=== PATIENT | female | born 1950 | race Hispanic/Latino ===

== ENCOUNTER 2016-05-16 15:33 | Inpatient (IN) | payer MEDICARE ==
[2016-05-16 15:57] VITALS: BMI 36.1
[2016-05-16] MEDS ORDERED: HYDROcodone/Acetaminophen 7.5/325 mg Tablet PO PRN (20:26)
[2016-05-16] MEDS: Gabapentin 300 MG CAP PO SCH (20:48)
[2016-05-16] MEDS: Atorvastatin Calcium 10 MG TAB PO SCH (20:49)
[2016-05-16] MEDS: Docusate 100 MG CAP PO SCH (20:49)
[2016-05-16] MEDS: Sucralfate 1 GM TAB PO SCH (20:49)
[2016-05-16] MEDS: HYDROcodone/Acetaminophen 7.5/325 mg Tablet PO PRN (20:49)
[2016-05-16] MEDS ORDERED: Hydroxychloroquine Sulfate 200 MG TAB PO SCH (21:00)
[2016-05-16] MEDS: Aggrenox 200-25mg CAP PO SCH (21:07)
[2016-05-16] MEDS: Hydroxychloroquine Sulfate 200 MG TAB PO SCH (21:36)
[2016-05-17] MEDS: HYDROcodone/Acetaminophen 7.5/325 mg Tablet PO PRN ×5 (03:51→20:51)
[2016-05-17 07:02] LABS: Anion Gap 14 mmol/L (10-20); BUN (Urea Nitrogen) 25 mg/dL (9.8-20.1); Calc. Creatinine Clearance 62 mL/min (70-130); Calcium 8.1 mg/dL (7.8-10.44); Carbon Dioxide 26 mmol/L (23-31); Chloride 102 mmol/L (98-107); Estimated GFR-MDRD 43; Glucose 115 mg/dL (80-115); Potassium 4.1 mmol/L (3.5-5.1); Sodium 138 mmol/L (136-145)
[2016-05-17 07:18] LABS: #Eosinphils 0.1 thou/uL (0.0-0.7); #Lymphocytes 0.9 thou/uL (1.20-3.40); #Monocytes 0.9 thou/uL (0.11-0.59); #Neutrophils 8.1 thou/uL (1.40-6.50); %Basophils 0.6 % (0.0-1.0); %Eosinophils 1.3 % (0.0-10.0); %Lymphocytes 9.3 % (21.0-51.0); %Neutrophils 79.7 % (42.0-75.0); Hemoglobin 9.5 g/dL (12.0-16.0); Mean Corpuscular HGB CONC 33.7 g/dL (32.0-36.0); Mean Corpuscular Hemoglobin 32.3 pg (27.0-31.0); Mean Corpuscular Volume 96.1 fL (81.0-99.0); Mean Platelet Volume 8.1 fL (7.4-10.4); Platelet Count 186 thou/uL (130-400); RBC Distribution Width 13.4 % (11.5-14.5); Red Blood Cell (RBC) Count 2.92 mill/uL (4.20-5.40); White Blood Cell (WBC) Count 10.2 thou/uL (4.8-10.8)
[2016-05-17 07:19] LABS: #Basophils 0.1 thou/uL (0.0-0.2)
[2016-05-17] MEDS: Sucralfate 1 GM TAB PO SCH ×2 (08:13→20:50)
[2016-05-17] MEDS: Hydroxychloroquine Sulfate 200 MG TAB PO SCH ×2 (08:55→20:50)
[2016-05-17] MEDS: Calcium Carbonate + Vit D 1 TAB PO SCH (08:55)
[2016-05-17] MEDS: Docusate 100 MG CAP PO SCH ×2 (08:56→20:51)
[2016-05-17] MEDS: Valsartan 80 MG TAB PO SCH (08:56)
[2016-05-17] MEDS: Bupropion 150 MG XL TAB PO SCH (08:56)
[2016-05-17] MEDS: Hydrochlorothiazide 25 MG TAB PO SCH (08:57)
[2016-05-17] MEDS: Gabapentin 300 MG CAP PO SCH ×2 (08:57→20:50)
[2016-05-17] MEDS ORDERED: HYDROCHLOROTHIAZIDE PO SCH (09:00)
[2016-05-17] MEDS ORDERED: VALSARTAN PO SCH (09:00)
[2016-05-17] MEDS ORDERED: [UNRECOGNIZED DRUG - OTHER] PO SCH (09:00)
[2016-05-17] MEDS ORDERED: AMLODIPINE PO SCH (09:00)
[2016-05-17] MEDS: Aggrenox 200-25mg CAP PO SCH ×2 (09:55→20:50)
[2016-05-17] MEDS: (Mirabegron [Myrbetriq] 50 MG) PO SCH (09:55)
--- NOTE | 2016-05-17 13:44 | RAD ---
PORTABLE CHEST 1 VIEW: DATE: 05/17/16. TIME: 10:22 a.m. HISTORY: Wheezing, atelectasis. FINDINGS: Comparison is made with the exam of 05/02/16. The heart size is normal. No focal areas of consolidation, pneumothorax, or pleural effusions are s een. IMPRESSION: No acute process. POS: OFF
[2016-05-17] MEDS: Atorvastatin Calcium 10 MG TAB PO SCH (20:49)
[2016-05-18] MEDS: HYDROcodone/Acetaminophen 7.5/325 mg Tablet PO PRN ×2 (04:15→08:48)
--- NOTE | 2016-05-18 05:19 | HP ---
DATE OF ADMISSION: 05/16/2016 HISTORY OF PRESENT ILLNESS: The patient is a very pleasant 65-year-old white female with a history of discoid lupus, insulin-dependent diabetes mellitus and hypertension, who has recently undergone a left total knee by Dr. Valdez Sadler and admitted to the SN[facility] unit for therapy. She has done well po stop with no complaints of chest pain, shortness of breath, fever, chills, nausea, vomiting. HOME MEDICATIONS: She has continued on her home medications of Myrbetriq 50 mg daily for urinary in continence, amlodipine 10 mg daily, as well as hydrochlorothiazide 25 mg daily for hypertension, gigi rvastatin 10 mg nightly for hyperlipidemia, gabapentin 300 twice daily for peripheral neuropathy, hy droxychloroquine sulfate 200 mg twice daily for discolored lupus Imdur 30 mg daily for recurrent sabrina st pain and angina and Diovan 320 mg daily for hypertension. She also takes Nexium 40 mg daily and sucralfate 1 g q.a.c. and at bedtime. ALLERGIES: She has no known allergies. SOCIAL HISTORY: She is a nonsmoker, nondrinker. REVIEW OF SYSTEMS: HEENT: She denies any headaches, dizziness, change in vision or hearing, hoarse ness or dysphagia. Pulmonary: She denies cough, sputum production, pneumonia, asthma, tuberculosis . Cardiovascular: Denies chest pain, orthopnea, paroxysmal nocturnal dyspnea or edema. Gastrointe stinal: Denies nausea, vomiting, diarrhea, constipation, abdominal pain. Genitourinary: She does have the above-mentioned incontinence controlled on Myrbertriq. Musculoskeletal: She has the above -mentioned recurrent pain in her left knee leading up to left total knee. 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 PHYSICAL EXAMINATION: GENERAL: The patient is an elderly female in no acute distress, oriented x3 and cooperativ e. VITAL SIGNS: Blood pressure of 121/61, temperature 99.1, pulse 91, respirations 22 and O2 saturatio ns 95%. LUNGS: Clear. CARDIAC: Regular rhythm. No gallops or murmurs. ABDOMEN: Soft, nontender with no masses or organomegaly. SKIN/EXTREMITIES: No edema, clubbing, cyanosis. There is left knee is bandaged with minimal erythe ma with significant tenderness and swelling. NEUROLOGICAL: Intact. LABORATORY AND X-RAY FINDINGS: Shows white count 10,200, hematocrit 28, and hemoglobin 9.5. Sodium 138, potassium 4.1, chloride 102, bicarbonate 26, BUN 25, creatinine 1.24. ASSESSMENT AND PLAN: A 65-year-old female with history of discoid lupus and hypertension, well controlled on medications, who has undergone a left total knee with no complications and admitt ed for physical therapy, should be continued on physical therapy, continue on DVT prophylaxis and st ress ulcer prophylaxis. Continue blood pressure control and monitor closely.
[2016-05-18] MEDS: Sucralfate 1 GM TAB PO SCH ×2 (07:49→20:22)
[2016-05-18] MEDS: Aggrenox 200-25mg CAP PO SCH ×2 (08:44→20:25)
[2016-05-18] MEDS: Docusate 100 MG CAP PO SCH ×2 (08:44→20:23)
[2016-05-18] MEDS: Calcium Carbonate + Vit D 1 TAB PO SCH (08:44)
[2016-05-18] MEDS: Hydrochlorothiazide 25 MG TAB PO SCH (08:44)
[2016-05-18] MEDS: Hydroxychloroquine Sulfate 200 MG TAB PO SCH ×2 (08:44→20:23)
[2016-05-18] MEDS: Bupropion 150 MG XL TAB PO SCH (08:45)
[2016-05-18] MEDS: Valsartan 80 MG TAB PO SCH (08:45)
[2016-05-18] MEDS: Gabapentin 300 MG CAP PO SCH ×2 (08:46→20:22)
[2016-05-18] MEDS: (Mirabegron [Myrbetriq] 50 MG) PO SCH (08:47)
[2016-05-18] MEDS: HYDROcodone/Acetaminophen 10/325 mg Tablet PO PRN ×3 (12:53→20:23)
--- NOTE | 2016-05-18 13:20 | PRG ---
DATE OF SERVICE: 05/18/2016 SUBJECTIVE: Patient feels well except for pain in her knee; constipation, is complaining about the CPM machine and significant pain with use of the machine, did cooperate; however, with therapy yeste rday. OBJECTIVE: Vital signs show blood pressure 119/58, pulse 93, afebrile, O2 sats 91%. Lungs are munira r. Cardiac examination shows regular rhythm. Abdomen is soft, nontender. Left knee shows minimal erythema and warmth. ASSESSMENT: Persistent pain, status post left total knee, on [place] 7.5 two every 4-6 hours, a new p roblem of constipation with narcotics. PLAN: Start MiraLax 17 grams twice, change [place] to 10/3.5 one to two every 4-6 hours as needed for moderate or severe pain. Restart CPM and stress to patient the need to continue this to pace in he r recovery.
[2016-05-18] MEDS: Atorvastatin Calcium 10 MG TAB PO SCH (20:22)
[2016-05-18] MEDS: Cyclobenzaprine 10 MG TAB PO PRN (20:23)
[2016-05-18] MEDS: Polyethylene Glycol 3350 17 GM Packet PO SCH (20:25)
[2016-05-19] MEDS: HYDROcodone/Acetaminophen 10/325 mg Tablet PO PRN ×4 (04:58→19:58)
[2016-05-19] MEDS: Sucralfate 1 GM TAB PO SCH ×2 (07:45→20:01)
[2016-05-19] MEDS: Calcium Carbonate + Vit D 1 TAB PO SCH (08:33)
[2016-05-19] MEDS: Hydrochlorothiazide 25 MG TAB PO SCH (08:33)
[2016-05-19] MEDS: Valsartan 80 MG TAB PO SCH (08:34)
[2016-05-19] MEDS: Docusate 100 MG CAP PO SCH ×2 (08:35→20:01)
[2016-05-19] MEDS: Bupropion 150 MG XL TAB PO SCH (08:35)
[2016-05-19] MEDS: Gabapentin 300 MG CAP PO SCH ×2 (08:35→20:01)
[2016-05-19] MEDS: Hydroxychloroquine Sulfate 200 MG TAB PO SCH ×2 (08:35→20:01)
[2016-05-19] MEDS: Nicotine 21 MG PATCH TD SCH (08:53)
[2016-05-19] MEDS: Aggrenox 200-25mg CAP PO SCH ×2 (08:53→20:01)
[2016-05-19] MEDS: (Mirabegron [Myrbetriq] 50 MG) PO SCH (08:53)
[2016-05-19] MEDS: Polyethylene Glycol 3350 17 GM Packet PO SCH ×2 (08:55→20:01)
[2016-05-19] MEDS: Cyclobenzaprine 10 MG TAB PO PRN (20:00)
[2016-05-19] MEDS: Atorvastatin Calcium 10 MG TAB PO SCH (20:01)
[2016-05-20] MEDS: HYDROcodone/Acetaminophen 10/325 mg Tablet PO PRN ×5 (01:29→20:18)
[2016-05-20] MEDS: Sucralfate 1 GM TAB PO SCH ×2 (07:42→20:19)
[2016-05-20] MEDS: Bupropion 150 MG XL TAB PO SCH (08:31)
[2016-05-20] MEDS: Aggrenox 200-25mg CAP PO SCH ×2 (08:31→20:20)
[2016-05-20] MEDS: Calcium Carbonate + Vit D 1 TAB PO SCH (08:31)
[2016-05-20] MEDS: Hydroxychloroquine Sulfate 200 MG TAB PO SCH ×2 (08:32→20:18)
[2016-05-20] MEDS: Gabapentin 300 MG CAP PO SCH ×2 (08:32→20:19)
[2016-05-20] MEDS: Docusate 100 MG CAP PO SCH ×2 (08:32→20:19)
[2016-05-20] MEDS: Hydrochlorothiazide 25 MG TAB PO SCH (08:32)
[2016-05-20] MEDS: Nicotine 21 MG PATCH TD SCH (08:33)
[2016-05-20] MEDS: (Mirabegron [Myrbetriq] 50 MG) PO SCH (08:33)
[2016-05-20] MEDS: Valsartan 80 MG TAB PO SCH (08:34)
[2016-05-20] MEDS: Polyethylene Glycol 3350 17 GM Packet PO SCH ×2 (08:34→20:19)
--- NOTE | 2016-05-20 09:51 | PRG ---
DATE OF SERVICE: 05/19/2016 SUBJECTIVE: The patient was seen in bed, getting ready to go the bathroom. She states that she sle pt better through the night, still having some problems with constipation and some difficulty with p ostnasal drainage. PHYSICAL EXAMINATION: VITAL SIGNS: Blood pressure 120/73, pulse 74, afebrile, respirations 20, O2 sats 95%. LUNGS: Clear. CARDIAC: Regular rhythm. EXTREMITIES: Right knee shows some swelling with no erythema or warmth. ASSESSMENT: Stable status post right total knee, stable discoid lupus, stable hypertension, persist ent constipation. Recurrent allergic rhinitis. PLAN: Loratadine 10 mg daily. Continue increased dose of hydrocodone 10/325 q.4h. Continue MiraLa x 17 grams twice daily.
--- NOTE | 2016-05-20 10:44 | PRG ---
DATE OF SERVICE: 05/20/2016 SUBJECTIVE: The patient is working with Physical Therapy with increased flexibility and decreased p ain in her left knee. She has good bowel movements with no further constipation. Had decreased con gestion on loratadine. OBJECTIVE: VITAL SIGNS: Blood pressure is 136/62, pulse is 86, temperature 98.9, O2 sats 91%, respirations 18. LUNGS: Clear. CARDIAC: Showed regular rhythm. EXTREMITIES: Left knee shows stable swelling with no erythema or warmth. ASSESSMENT: 1. Resolving left total knee. 2. Stable hypertension. 3. Resolved constipation. 4. Improving allergic rhinitis. PLAN: Continue PT, OT. Continue MiraLax routinely and hydrocodone as needed for pain relief.
[2016-05-20] MEDS: Cyclobenzaprine 10 MG TAB PO PRN (20:18)
[2016-05-20] MEDS: Atorvastatin Calcium 10 MG TAB PO SCH (20:19)
[2016-05-21] MEDS: HYDROcodone/Acetaminophen 10/325 mg Tablet PO PRN ×5 (03:03→20:31)
[2016-05-21] MEDS: Sucralfate 1 GM TAB PO SCH ×2 (07:16→20:26)
[2016-05-21] MEDS: Gabapentin 300 MG CAP PO SCH ×2 (08:19→20:27)
[2016-05-21] MEDS: Calcium Carbonate + Vit D 1 TAB PO SCH (08:19)
[2016-05-21] MEDS: Aggrenox 200-25mg CAP PO SCH ×2 (08:19→20:27)
[2016-05-21] MEDS: Docusate 100 MG CAP PO SCH ×2 (08:19→20:26)
[2016-05-21] MEDS: Bupropion 150 MG XL TAB PO SCH (08:19)
[2016-05-21] MEDS: Hydrochlorothiazide 25 MG TAB PO SCH (08:20)
[2016-05-21] MEDS: (Mirabegron [Myrbetriq] 50 MG) PO SCH (08:20)
[2016-05-21] MEDS: Nicotine 21 MG PATCH TD SCH (08:20)
[2016-05-21] MEDS: Hydroxychloroquine Sulfate 200 MG TAB PO SCH ×2 (08:20→20:27)
[2016-05-21] MEDS: Polyethylene Glycol 3350 17 GM Packet PO SCH ×2 (08:21→20:27)
[2016-05-21] MEDS: Valsartan 80 MG TAB PO SCH (08:21)
[2016-05-21] MEDS: Atorvastatin Calcium 10 MG TAB PO SCH (20:27)
[2016-05-21] MEDS: Cyclobenzaprine 10 MG TAB PO PRN (20:27)
[2016-05-22] MEDS: HYDROcodone/Acetaminophen 10/325 mg Tablet PO PRN ×3 (04:26→13:24)
[2016-05-22 07:10] VITALS: BP 120/68; TEMP 98.5
[2016-05-22] MEDS: Sucralfate 1 GM TAB PO SCH (07:30)
[2016-05-22] MEDS: (Mirabegron [Myrbetriq] 50 MG) PO SCH (09:00)
[2016-05-22] MEDS: Calcium Carbonate + Vit D 1 TAB PO SCH (09:30)
[2016-05-22] MEDS: Docusate 100 MG CAP PO SCH (09:30)
[2016-05-22] MEDS: Hydrochlorothiazide 25 MG TAB PO SCH (09:30)
[2016-05-22] MEDS: Gabapentin 300 MG CAP PO SCH (09:30)
[2016-05-22] MEDS: Valsartan 80 MG TAB PO SCH (09:30)
[2016-05-22] MEDS: Nicotine 21 MG PATCH TD SCH (09:30)
[2016-05-22] MEDS: Aggrenox 200-25mg CAP PO SCH (09:30)
[2016-05-22] MEDS: Polyethylene Glycol 3350 17 GM Packet PO SCH (09:30)
[2016-05-22] MEDS: Hydroxychloroquine Sulfate 200 MG TAB PO SCH (09:30)
[2016-05-22] MEDS: Bupropion 150 MG XL TAB PO SCH (09:30)
--- NOTE | 2016-05-23 12:00 | DIS ---
DATE OF ADMISSION: 05/16/2016 DATE OF DISCHARGE: 05/22/2016 FINAL DIAGNOSES: 1. Left total knee replacement. 2. Hypertension. 3. Discoid lupus. 4. Gastroesophageal reflux. 5. Nicotine abuse. HOSPITAL COURSE: The patient is a very pleasant 65-year-old female with history of discoid lupus, insulin-dependent diabetes mellitus, hypertension, who underwent a left total knee by Dr. Cathie Sadler with no complications, and was transferred to the SNF Unit on May 16, 2016, and started her on physical therapy, occupational therapy, and did very well with only problem with some pain, which was controlled with hydrocodone. She was continued on DVT, stress ulcer prophylaxis and blood pressure control. She was also continued on diabetic control. Glucose 115, BUN 25, creatinine 1.2 4, hematocrit 25, hemoglobin 9.5. Lungs were clear. Cardiac examination showed regular rhythm. Bl ood pressure remained stable at 136-125, O2 sat remained 95%. She was ambulating in the [place] with p hysical therapy and stated that she was ready to go home and do outpatient therapy, and therefore wa s discharged home on prehospitalization medication of Lipitor 10 nightly, Aggrenox 1 tab twice daily , bupropion 150 mg daily, Flexeril 10 mg nightly, Nexium 40 mg daily, docusate 100 mg twice daily as needed, gabapentin 300 twice daily, Plaquenil 200 mg twice daily, Isordil 30 mg daily, Myrbetriq 50 mg nightly, nicotine patch 21 mg daily, sertraline 100 mg daily, sucralfate 1 gram daily, and amlod ipine 10 mg daily, valsartan 320 mg daily and hydrochlorothiazide 25 mg daily in a combination pill, Exforge HCT. She will be follow up with per primary care, Dr. Abida Valencia. Continue outpatient y sical therapy, occupational therapy. She will also be followed up by her orthopedic physician, Dr. Sadler.
== END 2016-05-22 14:30 | disposition home or self-care (01) | DRG 561 ==
LOC: NAV ACUTE 15:33
PROVIDERS: ADMIT Internal Medicine; ATTEND Internal Medicine
DX: Z47.1 Aftercare following joint replacement surgery (principal); I10 Essential (primary) hypertension; Z96.651 Presence of right artificial knee joint; L93.0 Discoid lupus erythematosus; K21.9 Gastro-esophageal reflux disease without esophagitis; F17.210 Nicotine dependence, cigarettes, uncomplicated; G89.18 Other acute postprocedural pain; K59.00 Constipation, unspecified; T40.605A Adverse effect of unspecified narcotics, initial encounter
CPT/HCPCS: 71010; 80048; 85025; 87070; 87205

== ENCOUNTER 2016-06-26 10:10 | Outpatient (CLI) | payer MEDICARE | END 2016-06-26 10:11 | disposition home or self-care (01) | LOC: NAV LAB 10:10 | PROVIDERS: ATTEND Family Medicine | DX: R82.90 Unspecified abnormal findings in urine (principal) | CPT/HCPCS: 87086 ==

== ENCOUNTER 2017-05-20 16:47 | Inpatient (IN) | payer MEDICARE, MEDICAID ==
[2017-05-20] MEDS ORDERED: Prevnar 13-Val Conj/PF 0.5 ML SYRINGE IM ONE (17:15)
[2017-05-20] MEDS: Nicotine 21 MG PATCH TOP SCH (20:22)
[2017-05-20] MEDS: TROSPIUM 20 MG TABLET PO SCH (20:23)
[2017-05-20] MEDS: Docusate 100 MG CAP PO SCH (20:23)
[2017-05-20] MEDS: Sucralfate 1 GM TAB PO SCH (20:23)
[2017-05-20] MEDS: Gabapentin 300 MG CAP PO SCH (20:23)
[2017-05-20] MEDS: Atorvastatin Calcium 10 MG TAB PO SCH (20:24)
[2017-05-20] MEDS: Triamcinolone 0.025 % Cream 15GM TUBE TOP SCH (20:32)
[2017-05-20] MEDS: Acetaminophen 325 MG TAB PO PRN (22:38)
[2017-05-20] MEDS: Cyclobenzaprine 10 MG TAB PO PRN (22:39)
[2017-05-21 05:29] LABS: #Basophils 0.1 thou/uL (0.0-0.2); #Eosinphils 0.7 thou/uL (0.0-0.7); #Lymphocytes 1.3 thou/uL (1.20-3.40); #Monocytes 0.7 thou/uL (0.11-0.59); #Neutrophils 3.8 thou/uL (1.40-6.50); %Eosinophils 10.6 % (0.0-10.0); %Lymphocytes 20.1 % (21.0-51.0); %Monocytes 10.8 % (0.0-10.0); %Neutrophils 57.5 % (42.0-75.0); Hemoglobin 11.1 g/dL (12.0-16.0); Mean Corpuscular HGB CONC 32.9 g/dL (32.0-36.0); Mean Corpuscular Hemoglobin 30.5 pg (27.0-31.0); Mean Corpuscular Volume 92.6 fl (81.0-99.0); Mean Platelet Volume 9.4 fL (7.4-10.4); Platelet Count 218 thou/uL (130-400); RBC Distribution Width 13.6 % (11.5-14.5); Red Blood Cell (RBC) Count 3.63 mill/uL (4.20-5.40); White Blood Cell (WBC) Count 6.6 thou/uL (4.8-10.8)
[2017-05-21 05:41] LABS: Anion Gap 13 mmol/L (10-20); BUN (Urea Nitrogen) 23 mg/dL (9.8-20.1); Calc. Creatinine Clearance 75 mL/min (70-130); Calcium 9.6 mg/dL (7.8-10.44); Carbon Dioxide 27 mmol/L (23-31); Chloride 107 mmol/L (98-107); Estimated GFR-MDRD 61; Glucose 94 mg/dL (80-115); Potassium 3.9 mmol/L (3.5-5.1); Sodium 143 mmol/L (136-145)
[2017-05-21] MEDS ORDERED: [UNRECOGNIZED DRUG - OTHER] PO SCH (09:00)
[2017-05-21] MEDS: Amlodipine 10 MG TAB PO SCH (09:51)
[2017-05-21] MEDS: Hydroxychloroquine Sulfate 200 MG TAB PO SCH (09:51)
[2017-05-21] MEDS: Calcium Carbonate + Vit D 1 TAB PO SCH (09:55)
[2017-05-21] MEDS: Sucralfate 1 GM TAB PO SCH ×4 (09:55→20:49)
[2017-05-21] MEDS: Bupropion 150 MG XL TAB PO SCH (09:55)
[2017-05-21] MEDS: Acetaminophen 325 MG TAB PO PRN ×2 (09:55→15:58)
[2017-05-21] MEDS: TROSPIUM 20 MG TABLET PO SCH ×2 (09:56→20:49)
[2017-05-21] MEDS: Valsartan 80 MG TAB PO SCH (09:56)
[2017-05-21] MEDS: Docusate 100 MG CAP PO SCH ×2 (09:56→20:48)
[2017-05-21] MEDS: Isosorbide Dinitrate 20 MG TAB PO SCH (09:57)
[2017-05-21] MEDS: Hydrochlorothiazide 25 MG TAB PO SCH (09:57)
[2017-05-21] MEDS: Gabapentin 300 MG CAP PO SCH ×2 (09:57→20:48)
[2017-05-21] MEDS: [UNRECOGNIZED DRUG - OTHER] PO SCH (10:12)
[2017-05-21] MEDS: OMEGA PO SCH (10:12)
[2017-05-21] MEDS: BIOTIN 5 MG PO SCH (10:13)
[2017-05-21] MEDS: Triamcinolone 0.025 % Cream 15GM TUBE TOP SCH ×2 (10:20→20:49)
[2017-05-21 11:17] LABS: Hemoglobin A1c 5.1 % (4.0-6.0)
--- NOTE | 2017-05-21 14:21 | HP ---
DATE OF ADMISSION: 05/20/2017 CHIEF COMPLAINT: Intracranial hemorrhage. BRIEF HISTORY: This is a very pleasant 66-year-old female who is well known to me apparentl y presented to the emergency room. She presented to the [facility] with severe h eadache, mandibular pain and right-sided weakness. She had a CT scan done which showed right and lef t supratentorial hemorrhage. She was admitted to the hospital. She was deemed to be inappropriate t o be managed conservatively. She was on Aggrenox in the past and that was held. She slowly improved , but felt to be a good detention candidate for therapy and so has been transferred here. Curr ently, her main complaint is right arm pain. Her daughter is in the room. She denies any headache. She denies any visual symptoms. She is able to recognize me. Her speech is clear. Denies any diff iculty with swallowing. PAST MEDICAL HISTORY: 1. History of lupus, I think it was more of discoid lupus. 2. Hypertension. 3. Dyslipidemia. 4. Rheumatoid arthritis. 5. Peptic ulcer disease. 6. Depression. 7. Overactive bladder. 8. She had CVA in 2004. PAST SURGICAL HISTORY: 1. Back surgery in 2004. 2. Bilateral cataract extraction. 3. Multiple dental surgeries. 4. Hysterectomy. 5. Bladder surgery. 6. Left total knee replacement. FAMILY HISTORY: Positive for hypertension in her father and diabetes in her mother. PSYCHOSOCIAL HISTORY: Current smoker. Denies any alcohol or IV drug abuse. ALLERGIES: No known drug allergies. MEDICATIONS: She has been transferred here on the following medications: 1. Tylenol 650 mg q.6 p.r.n. 2. Amlodipine 10 mg daily. 3. Lipitor 10 mg daily. 4. Wellbutrin 300 mg daily. 5. Flexeril 10 mg at bedtime p.r.n. 6. Gabapentin 300 mg b.i.d. 7. HCTZ 25 mg daily. 8. Hydroxychloroquine, which is Plaquenil 200 mg daily. 9. Isosorbide 40 mg daily. 10. Myrbetriq 50 mg daily. 11. Protonix 40 mg daily. 12. Sertraline 100 mg daily. 13. Carafate 1 gram q.i.d. 14. Valsartan 320 mg daily. She is also on trospium and I am not sure why in addition to the Myrbet riq. REVIEW OF SYSTEMS: CARDIOVASCULAR SYSTEM: Denies any chest pain, shortness of breath, palpitations, paroxysmal nocturnal dyspnea, orthopnea, pedal edema. RESPIRATORY SYSTEM: Denies any chronic cough , expiration or pleuritic type chest pain. GASTROINTESTINAL SYSTEM: Denies any nausea, vomiting, co nstipation, hematemesis, melena, or hematochezia. GENITOURINARY SYSTEM: Denies any frequency, urgen cy, dysuria or hematuria. She does have symptoms of bladder control by medication. CENTRAL NERVOUS SYSTEM: Right-sided weakness, most likely related to her intracranial hemorrhage. Denies any diffic ult speech, vision, or swallowing. PHYSICAL EXAMINATION: GENERAL: Very pleasant 66-year-old female resting comfortably in no acute distress. She re sponds appropriately to questions. Her daughter is in the room. VITAL SIGNS: She is afebrile, heart rate is 88, respirations 18, oxygen saturation 96% on room air, blood pressure 145/70. HEENT: Normocephalic, atraumatic. Pupils are equally reactive to light and accommodation. NECK: No JVD, thyromegaly, cervical adenopathy, throat exudates or carotid bruits. CARDIOVASCULAR SY STEM: S1, S2, rate and rhythm regular. RESPIRATORY SYSTEM: Normal vesicular breath sounds heard in all lung tate. ABDOMEN: Soft, nontender, bowel sounds heard in all quadrants. EXTREMITIES: Without cyanosis or clubbing. CENTRAL NERVOUS SYSTEM: With 3-4/5 weakness in strength in the right upper and lower extremities. LABORATORY VALUES: White count of 6.6, hemoglobin and hematocrit is 11.1 and 33.6. Sodium 143, pota ssium 3.9, BUN and creatinine is 23 and 0.92, calcium is 9.6, glycohemoglobin is 5.1. IMPRESSION: 1. Intracranial hemorrhage with residual right-sided weakness. 2. Hypertension. 3. Dyslipidemia. 4. History of ischemic/embolic cerebrovascular in 2004 and was on Aggrenox. 5. Gastroesophageal reflux disease. 6. History of lupus and rheumatoid arthritis. 7. Chronic pain. 8. Depression. PLAN: 1. Continue current medications. 2. Monitor neuro status. 3. DVT and stress ulcer prophylaxis. 4. Decubitus precautions. 5. Heart healthy diet. 6. Physical therapy and occupational therapy. 7. Nutritional support. 8. Routine laboratory values. 9. Outpatient followup with Neurosurgery and Neurology. 10. Monitor her medications for her overactive bladder. 11. We will see if she was getting hydrocodone there and if it was cleared by Neurosurgery then we w ill get her back on her hydrocodone. Estimated length of stay 7-14 days. Discussed with the patient and daughter in detail. All question s answered.
[2017-05-21] MEDS: Nicotine 21 MG PATCH TOP SCH (17:51)
[2017-05-21] MEDS: Atorvastatin Calcium 10 MG TAB PO SCH (20:48)
[2017-05-21] MEDS: Cyclobenzaprine 10 MG TAB PO PRN (20:49)
[2017-05-22] MEDS: Acetaminophen 325 MG TAB PO PRN (09:18)
[2017-05-22] MEDS: Sucralfate 1 GM TAB PO SCH ×4 (09:18→21:01)
[2017-05-22] MEDS: Valsartan 80 MG TAB PO SCH (09:18)
[2017-05-22] MEDS: Docusate 100 MG CAP PO SCH ×2 (09:19→21:01)
[2017-05-22] MEDS: Hydroxychloroquine Sulfate 200 MG TAB PO SCH (09:19)
[2017-05-22] MEDS: Calcium Carbonate + Vit D 1 TAB PO SCH (09:20)
[2017-05-22] MEDS: Bupropion 150 MG XL TAB PO SCH (09:20)
[2017-05-22] MEDS: Amlodipine 10 MG TAB PO SCH (09:20)
[2017-05-22] MEDS: Isosorbide Dinitrate 20 MG TAB PO SCH (09:20)
[2017-05-22] MEDS: Hydrochlorothiazide 25 MG TAB PO SCH (09:20)
[2017-05-22] MEDS: TROSPIUM 20 MG TABLET PO SCH ×2 (09:20→21:01)
[2017-05-22] MEDS: Gabapentin 300 MG CAP PO SCH ×2 (09:20→21:01)
[2017-05-22] MEDS: OMEGA PO SCH (09:21)
[2017-05-22] MEDS: [UNRECOGNIZED DRUG - OTHER] PO SCH (09:21)
[2017-05-22] MEDS: BIOTIN 5 MG PO SCH (09:21)
[2017-05-22] MEDS: Triamcinolone 0.025 % Cream 15GM TUBE TOP SCH ×2 (11:55→21:01)
[2017-05-22] MEDS: HYDROcodone/Acetaminophen 5/325 mg Tablet PO PRN (13:13)
--- NOTE | 2017-05-22 13:33 | PRG ---
DATE OF SERVICE: 05/22/2017 SUBJECTIVE: Ms. Nation is doing well. She apparently did well with therapy. She continues to compla in of pain. Advised that I am going to get her back on just 5/325 of hydrocodone q.6h. p.r.n. just t o see how she does. She wondered if she can go home for the weekend. I advised her that the more sh e can do is on for a couple of hours, but even that at this point I would not recommend since she is just post-intracerebral hemorrhage and we want to continue to monitor her closely. OBJECTIVE: VITAL SIGNS: She is afebrile, heart rate 70, respirations 20, oxygen saturation 96% on room air, blo od pressure 120/66. CARDIOVASCULAR SYSTEM: S1, S2 plus. RESPIRATORY SYSTEM: Normal vesicular breath sounds. ABDOMEN: Soft, nontender, bowel sounds heard in all quadrants. EXTREMITIES: Without cyanosis or clubbing. Peripheral pulses are palpable. CENTRAL NERVOUS SYSTEM: Improving right-sided weakness. IMPRESSION: 1. Intracerebral hemorrhage with right-sided weakness. 2. Hypertension, stable. 3. Dyslipidemia. 4. Rheumatoid arthritis. 5. History of peptic ulcer disease. 6. Depression. 7. Overactive bladder. 8. History of ischemic cerebrovascular accident. PLAN: 1. Resume hydrocodone 5/325 q.6 h. p.r.n. 2. Continue other medications. 3. Heart healthy diet. 4. DVT and stress ulcer prophylaxis with PlexiPulses. 5. Physical therapy and occupational therapy. 6. Home medications. 7. Routine laboratory values. 8. Discussed with patient in detail. All questions answered.
[2017-05-22] MEDS: Nicotine 21 MG PATCH TOP SCH (18:08)
[2017-05-22] MEDS: Atorvastatin Calcium 10 MG TAB PO SCH (21:01)
[2017-05-22] MEDS: Cyclobenzaprine 10 MG TAB PO PRN (21:02)
[2017-05-23] MEDS: Calcium Carbonate + Vit D 1 TAB PO SCH (08:01)
[2017-05-23] MEDS: TROSPIUM 20 MG TABLET PO SCH ×2 (08:02→20:35)
[2017-05-23] MEDS: Docusate 100 MG CAP PO SCH ×2 (08:02→20:35)
[2017-05-23] MEDS: Bupropion 150 MG XL TAB PO SCH (08:02)
[2017-05-23] MEDS: Sucralfate 1 GM TAB PO SCH ×4 (08:08→20:35)
[2017-05-23] MEDS: Hydroxychloroquine Sulfate 200 MG TAB PO SCH (08:08)
[2017-05-23] MEDS: Amlodipine 10 MG TAB PO SCH (08:08)
[2017-05-23] MEDS: Gabapentin 300 MG CAP PO SCH ×2 (08:08→20:35)
[2017-05-23] MEDS: Valsartan 80 MG TAB PO SCH (08:08)
[2017-05-23] MEDS: Isosorbide Dinitrate 20 MG TAB PO SCH (08:08)
[2017-05-23] MEDS: OMEGA PO SCH (08:09)
[2017-05-23] MEDS: [UNRECOGNIZED DRUG - OTHER] PO SCH (08:09)
[2017-05-23] MEDS: BIOTIN 5 MG PO SCH (08:09)
[2017-05-23] MEDS: Hydrochlorothiazide 25 MG TAB PO SCH (08:09)
[2017-05-23] MEDS: Triamcinolone 0.025 % Cream 15GM TUBE TOP SCH ×2 (09:00→20:35)
[2017-05-23] MEDS: Acetaminophen 325 MG TAB PO PRN (10:06)
[2017-05-23] MEDS: Nicotine 21 MG PATCH TOP SCH (20:34)
[2017-05-23] MEDS: Cyclobenzaprine 10 MG TAB PO PRN (20:35)
[2017-05-23] MEDS: Atorvastatin Calcium 10 MG TAB PO SCH (20:35)
--- NOTE | 2017-05-24 07:36 | PRG ---
DATE OF SERVICE: 05/24/2017 DATE OF ADMISSION: 05/20/2017 HISTORY OF PRESENT ILLNESS: Ms. Nation is a 66-year-old female who presented to emergency ro om at [facility] with severe headache. She was found to have a right and left hendrix pratentorial hemorrhage. She was admitted to the hospital and managed conservatively. Her Aggrenox was stopped and she slowly improved and was felt unsafe to be at home. Therefore, she was transferre d to [facility] for physical therapy and occupational therapy to manage her weakness and pain. The patient states she feels a little bit better and feels a little bit stronger and seems to be doin g well with her therapy. PHYSICAL EXAMINATION: VITAL SIGNS: Reveal blood pressure last night was 107/76, pulse 83, respirations 18, O2 sat was 93% on room air, T-max is 98.5. Weight is 174 pounds. GENERAL: This is a well-developed, well-nourished, pleasant white female in no apparent distress at this time. HEENT: Reveals normocephalic, nontraumatic cranium. Pupils are equally round and reactive. Extraoc ular movements are intact. Nose and throat are slightly dry, but clear. NECK: Supple, without mass, nodes or bruits. CHEST: Clear to auscultation. No rales, no rhonchi, no wheezes and no cough is heard. HEART: Reveals a regular rate and rhythm without murmurs, gallops or rubs. ABDOMEN: Soft and nontender without organomegaly. Normal bowel sounds are noted in all 4 quadrants. No rebound or guarding is noted. GENITOURINARY: Deferred. EXTREMITIES: Reveal no clubbing, cyanosis or edema. NEUROLOGIC: Patient is oriented to person, place, and time. IMPRESSION: 1. Intracerebral hemorrhage with right-sided weakness. 2. Hypertension. 3. Rheumatoid arthritis. 4. Hyperlipidemia. 5. History of peptic ulcer disease. 6. Overactive bladder. 7. Depression. 8. History of cerebrovascular accident in the past. PLAN: 1. Continue present medications. 2. Continue hydrocodone 5/325 q.6 p.r.n. 3. Stress ulcer prophylaxis. 4. DVT prophylaxis. 5. Physical therapy and occupational therapy. 6. Continue present medications. 7. Routine labs as necessary.
[2017-05-24] MEDS: Triamcinolone 0.025 % Cream 15GM TUBE TOP SCH ×3 (08:30→20:38)
[2017-05-24] MEDS: Amlodipine 10 MG TAB PO SCH (08:55)
[2017-05-24] MEDS: Gabapentin 300 MG CAP PO SCH ×2 (09:00→20:36)
[2017-05-24] MEDS: Bupropion 150 MG XL TAB PO SCH (09:00)
[2017-05-24] MEDS: Docusate 100 MG CAP PO SCH ×2 (09:00→20:36)
[2017-05-24] MEDS: Calcium Carbonate + Vit D 1 TAB PO SCH (09:00)
[2017-05-24] MEDS: Hydrochlorothiazide 25 MG TAB PO SCH (09:01)
[2017-05-24] MEDS: Isosorbide Dinitrate 20 MG TAB PO SCH (09:01)
[2017-05-24] MEDS: Hydroxychloroquine Sulfate 200 MG TAB PO SCH (09:01)
[2017-05-24] MEDS: [UNRECOGNIZED DRUG - OTHER] PO SCH (09:02)
[2017-05-24] MEDS: OMEGA PO SCH (09:02)
[2017-05-24] MEDS: BIOTIN 5 MG PO SCH (09:02)
[2017-05-24] MEDS: Sucralfate 1 GM TAB PO SCH ×4 (09:03→20:35)
[2017-05-24] MEDS: TROSPIUM 20 MG TABLET PO SCH ×2 (09:03→20:36)
[2017-05-24] MEDS: Valsartan 80 MG TAB PO SCH (09:03)
[2017-05-24] MEDS: HYDROcodone/Acetaminophen 5/325 mg Tablet PO PRN ×2 (10:54→20:38)
[2017-05-24] MEDS: Nicotine 21 MG PATCH TOP SCH (18:48)
[2017-05-24] MEDS: Atorvastatin Calcium 10 MG TAB PO SCH (20:36)
--- NOTE | 2017-05-25 07:51 | PRG ---
DATE OF SERVICE: 05/25/2017 HISTORY OF PRESENT ILLNESS: Ms. Nation is a very pleasant 66-year-old female who presented h erself to the emergency room at [facility] with severe headache. She was found t o have right and left supratentorial hemorrhage. She was evaluated at the hospital, seen by [facility] and managed conservatively. Her Aggrenox was stopped. She was unsafe to send home, so therefor e she was transferred to [facility] for physical therapy, occupational therapy, and n eurological monitoring. SUBJECTIVE: The patient states she continues to feel better. She is wondering when she can go home. She will need a little bit more strengthening and we will have to follow her a little longer for be tter resolutions of her hemorrhage. She has no other questions today. PHYSICAL EXAMINATION: VITAL SIGNS: This morning reveal blood pressure 119/56, pulse 75-76, respirations 18-20, O2 sat 97%- 98% on room air and T-max is 99.1. GENERAL: This is a well-developed, well-nourished, somewhat obese female in no apparent dis tress at this time. HEENT: Reveals normocephalic, nontraumatic cranium. Pupils equal, round, and reactive. Extraocular movements are intact. Nose and throat are moist and clear. NECK: Supple, without mass, nodes or bruits. CHEST: Clear to auscultation. No rales, rhonchi, wheezes or cough is noted. HEART: Reveals a regular rate and rhythm without murmurs, gallops or rubs. ABDOMEN: Soft, nontender, without organomegaly. Normal bowel sounds are noted. No rebound or guard ing is noted. GENITOURINARY: Deferred. EXTREMITIES: Reveal no clubbing, cyanosis or edema. NEUROLOGIC: The patient is oriented to person, place, and time. IMPRESSION: 1. Intracerebral hemorrhage with right-sided weakness. 2. Hypertension. 3. Hyperlipidemia. 4. Rheumatoid arthritis. 5. Overactive bladder. 6. History of peptic ulcer disease. 7. Depression. 8. History of cerebrovascular accident in the past. PLAN: 1. Continue present medication. 2. Continue hydrocodone 5/325 only p.r.n. 3. Stress ulcer prophylaxis. 4. DVT prophylaxis. 5. Decubitus precautions. 6. Continue present medications. 7. Routine labs p.r.n. 8. Physical therapy and occupational therapy. 9. Dr. Whaley will be back medical radiation therapist tonight at 9.
[2017-05-25] MEDS: Bupropion 150 MG XL TAB PO SCH (09:00)
[2017-05-25] MEDS: Amlodipine 10 MG TAB PO SCH (09:00)
[2017-05-25] MEDS: Docusate 100 MG CAP PO SCH ×2 (09:01→20:38)
[2017-05-25] MEDS: Calcium Carbonate + Vit D 1 TAB PO SCH (09:01)
[2017-05-25] MEDS: Hydroxychloroquine Sulfate 200 MG TAB PO SCH (09:02)
[2017-05-25] MEDS: Gabapentin 300 MG CAP PO SCH ×2 (09:02→20:38)
[2017-05-25] MEDS: Hydrochlorothiazide 25 MG TAB PO SCH (09:02)
[2017-05-25] MEDS: Isosorbide Dinitrate 20 MG TAB PO SCH (09:02)
[2017-05-25] MEDS: [UNRECOGNIZED DRUG - OTHER] PO SCH (09:03)
[2017-05-25] MEDS: BIOTIN 5 MG PO SCH (09:03)
[2017-05-25] MEDS: OMEGA PO SCH (09:03)
[2017-05-25] MEDS: Sucralfate 1 GM TAB PO SCH ×4 (09:04→20:38)
[2017-05-25] MEDS: Triamcinolone 0.025 % Cream 15GM TUBE TOP SCH ×2 (09:05→20:39)
[2017-05-25] MEDS: TROSPIUM 20 MG TABLET PO SCH ×2 (09:06→20:38)
[2017-05-25] MEDS: Valsartan 80 MG TAB PO SCH (09:06)
[2017-05-25] MEDS: HYDROcodone/Acetaminophen 5/325 mg Tablet PO PRN ×2 (09:07→20:39)
[2017-05-25] MEDS: Nicotine 21 MG PATCH TOP SCH (17:57)
[2017-05-25] MEDS: Atorvastatin Calcium 10 MG TAB PO SCH (20:38)
[2017-05-26] MEDS: Calcium Carbonate + Vit D 1 TAB PO SCH (09:02)
[2017-05-26] MEDS: Sucralfate 1 GM TAB PO SCH ×4 (09:02→20:32)
[2017-05-26] MEDS: Gabapentin 300 MG CAP PO SCH ×2 (09:03→20:31)
[2017-05-26] MEDS: Bupropion 150 MG XL TAB PO SCH (09:03)
[2017-05-26] MEDS: Hydroxychloroquine Sulfate 200 MG TAB PO SCH (09:03)
[2017-05-26] MEDS: TROSPIUM 20 MG TABLET PO SCH ×2 (09:03→20:32)
[2017-05-26] MEDS: Amlodipine 10 MG TAB PO SCH (09:04)
[2017-05-26] MEDS: Hydrochlorothiazide 25 MG TAB PO SCH (09:04)
[2017-05-26] MEDS: Valsartan 80 MG TAB PO SCH (09:04)
[2017-05-26] MEDS: Docusate 100 MG CAP PO SCH ×2 (09:04→20:31)
[2017-05-26] MEDS: Isosorbide Dinitrate 20 MG TAB PO SCH (09:05)
[2017-05-26] MEDS: [UNRECOGNIZED DRUG - OTHER] PO SCH (09:06)
[2017-05-26] MEDS: OMEGA PO SCH (09:06)
[2017-05-26] MEDS: BIOTIN 5 MG PO SCH (09:06)
[2017-05-26] MEDS: Triamcinolone 0.025 % Cream 15GM TUBE TOP SCH ×2 (09:08→20:32)
--- NOTE | 2017-05-26 13:21 | PRG ---
DATE OF SERVICE: 05/26/2017 SUBJECTIVE: Ms. Nation is doing well. Denies any complaints, resting comfortably. No family at beds jessica, discussed with therapy and they stated that she was more weak today and needed more assistance, especially in her right lower extremity. The patient did not complain to me of any headache. They d id notice her blood pressure to be low. OBJECTIVE: VITAL SIGNS: She is afebrile, heart rate 73, respirations 20, oxygen saturation 95%, blood pressure was 108/65 but with activity, it went down to 96/58. CARDIOVASCULAR: S1, S2 plus. RESPIRATORY: Normal vesicular breath sounds. ABDOMEN: Soft, nontender, bowel sounds heard in all quadrants. EXTREMITIES: Without cyanosis or clubbing. IMPRESSION: 1. Intracranial hemorrhage. 2. History of ischemic cerebrovascular accident. 3. Hypertension having episodes of hypotension. 4. Dyslipidemia. 5. Rheumatoid arthritis. 6. History of lupus. 7. Overactive bladder. PLAN: 1. Adjust blood pressure medications. 2. Nutritional support. 3. Physical therapy. 4. If she continues to have persistent weakness or any worsening, we will repeat another CT brain. 5. Discussed with the patient in therapy in detail. All questions answered. 6. Recheck laboratories in the morning.
[2017-05-26] MEDS: HYDROcodone/Acetaminophen 5/325 mg Tablet PO PRN (13:39)
[2017-05-26] MEDS: Nicotine 21 MG PATCH TOP SCH (17:56)
[2017-05-26] MEDS: Atorvastatin Calcium 10 MG TAB PO SCH (20:31)
[2017-05-26] MEDS: Cyclobenzaprine 10 MG TAB PO PRN (20:32)
[2017-05-27] MEDS: Hydrochlorothiazide 25 MG TAB PO SCH (08:04)
[2017-05-27] MEDS: Bupropion 150 MG XL TAB PO SCH (08:04)
[2017-05-27] MEDS: Isosorbide Dinitrate 20 MG TAB PO SCH (08:05)
[2017-05-27] MEDS: Docusate 100 MG CAP PO SCH ×2 (08:05→21:01)
[2017-05-27] MEDS: Hydroxychloroquine Sulfate 200 MG TAB PO SCH (08:05)
[2017-05-27] MEDS: Gabapentin 300 MG CAP PO SCH ×2 (08:05→21:01)
[2017-05-27] MEDS: Calcium Carbonate + Vit D 1 TAB PO SCH (08:05)
[2017-05-27] MEDS: Sucralfate 1 GM TAB PO SCH ×4 (08:05→21:02)
[2017-05-27] MEDS: Valsartan 80 MG TAB PO SCH (08:06)
[2017-05-27] MEDS: TROSPIUM 20 MG TABLET PO SCH ×2 (08:06→21:02)
[2017-05-27] MEDS: OMEGA PO SCH (08:08)
[2017-05-27] MEDS: BIOTIN 5 MG PO SCH (08:08)
[2017-05-27] MEDS: [UNRECOGNIZED DRUG - OTHER] PO SCH (08:08)
[2017-05-27] MEDS: Triamcinolone 0.025 % Cream 15GM TUBE TOP SCH ×2 (08:09→21:02)
[2017-05-27] MEDS: HYDROcodone/Acetaminophen 5/325 mg Tablet PO PRN (13:31)
--- NOTE | 2017-05-27 14:51 | PRG ---
DATE OF SERVICE: 05/27/2017 SUBJECTIVE: Ms. Nation is doing well. Denies any complaints, resting comfortably. Her blood pressur e medications were decreased yesterday due to hypotension with therapy. Her valsartan was held this morning. Continues to have some episodes of hypotension. Encourage her to drink plenty of water and will monitor her and may discontinue her amlodipine if it continues to be low, but both the medicati ons are to be held if systolic blood pressure is less than 140. She denies any concerns or questions . OBJECTIVE: VITAL SIGNS: She is afebrile, heart rate 73, respirations 18, oxygen saturation 96% on room air, blo od pressure is 103/64. CARDIOVASCULAR: S1, S2 plus. RESPIRATORY: Vesicular breath sounds. ABDOMEN: Soft, nontender, bowel sounds heard in all quadrants. EXTREMITIES: Without cyanosis or clubbing. Peripheral pulses are palpable. CENTRAL NERVOUS SYSTEM: Generalized weakness and deficits from her recent intracranial hemorrhage, m ainly affecting her right side. IMPRESSION: 1. Intracerebral hemorrhage with right-sided weakness. 2. Hypotension improved with adjusting her blood pressure medications. 3. Dyslipidemia. 4. Rheumatoid arthritis. 5. Discoid lupus. 6. Depression and anxiety. 7. Overactive bladder. PLAN: 1. Continue current medications. 2. Nutritional support. 3. Monitor blood pressure. 4. Encourage p.o. fluid intake. 5. Heart healthy diet. 6. DVT and stress ulcer prophylaxis. 7. Decubitus precautions. 8. Routine laboratory values. 9. Discussed with patient and nursing in detail. All questions answered.
[2017-05-27] MEDS: Nicotine 21 MG PATCH TOP SCH (17:58)
[2017-05-27] MEDS: Cyclobenzaprine 10 MG TAB PO PRN (21:02)
[2017-05-27] MEDS: Atorvastatin Calcium 10 MG TAB PO SCH (21:02)
[2017-05-28] MEDS: Calcium Carbonate + Vit D 1 TAB PO SCH (09:02)
[2017-05-28] MEDS: Hydrochlorothiazide 25 MG TAB PO SCH (09:02)
[2017-05-28] MEDS: Docusate 100 MG CAP PO SCH ×2 (09:02→20:27)
[2017-05-28] MEDS: Gabapentin 300 MG CAP PO SCH ×2 (09:02→20:27)
[2017-05-28] MEDS: Bupropion 150 MG XL TAB PO SCH (09:02)
[2017-05-28] MEDS: Isosorbide Dinitrate 20 MG TAB PO SCH (09:03)
[2017-05-28] MEDS: Hydroxychloroquine Sulfate 200 MG TAB PO SCH (09:03)
[2017-05-28] MEDS: BIOTIN 5 MG PO SCH (09:03)
[2017-05-28] MEDS: Triamcinolone 0.025 % Cream 15GM TUBE TOP SCH ×2 (09:04→20:28)
[2017-05-28] MEDS: OMEGA PO SCH (09:04)
[2017-05-28] MEDS: [UNRECOGNIZED DRUG - OTHER] PO SCH (09:04)
[2017-05-28] MEDS: Sucralfate 1 GM TAB PO SCH ×4 (09:04→20:28)
[2017-05-28] MEDS: HYDROcodone/Acetaminophen 5/325 mg Tablet PO PRN (09:05)
[2017-05-28] MEDS: TROSPIUM 20 MG TABLET PO SCH ×2 (09:05→20:27)
[2017-05-28] MEDS: Valsartan 80 MG TAB PO SCH (09:05)
--- NOTE | 2017-05-28 13:09 | PRG ---
DATE OF SERVICE: 05/28/2017 SUBJECTIVE: Ms. Nation is doing well. Denies any complaints, resting comfortably. Her blood pressur e is much improved, she states that except for her right leg weakness. She is doing great, toleratin g her diet. OBJECTIVE: VITAL SIGNS: She is afebrile, heart rate is 73, respirations 18, oxygen saturation 94% on room air, and blood pressure 137/65. CARDIOVASCULAR: S1 and S2 plus. RESPIRATORY: Normal vesicular breath sounds. ABDOMEN: Soft, nontender, bowel sounds heard in all quadrants. EXTREMITIES: Without cyanosis or clubbing. Peripheral pulses are palpable. CENTRAL NERVOUS SYSTEM: Right-sided weakness. IMPRESSION: 1. Recent intracranial hemorrhage with right-sided weakness. 2. Hypotension, much improved. 3. Dyslipidemia. 4. Rheumatoid arthritis. 5. Discoid lupus. 6. Depression and anxiety. 7. Overactive bladder. PLAN: 1. Continue current medications. 2. Nutritional support. 3. Recheck BMP, CBC in the morning. 4. DVT and stress ulcer prophylaxis. 5. Decubitus precautions. 6. Physical therapy. 7. Discussed with patient and family friend in detail. All questions answered.
[2017-05-28] MEDS: Nicotine 21 MG PATCH TOP SCH (18:20)
[2017-05-28] MEDS: Atorvastatin Calcium 10 MG TAB PO SCH (20:27)
[2017-05-28] MEDS: Cyclobenzaprine 10 MG TAB PO PRN (20:28)
[2017-05-29] MEDS: Acetaminophen 325 MG TAB PO PRN (02:00)
[2017-05-29 05:59] LABS: #Basophils 0.1 thou/uL (0.0-0.2); #Eosinphils 0.4 thou/uL (0.0-0.7); #Lymphocytes 1.9 thou/uL (1.20-3.40); #Monocytes 0.8 thou/uL (0.11-0.59); #Neutrophils 3.6 thou/uL (1.40-6.50); %Basophils 1.9 % (0.0-1.0); %Eosinophils 6.5 % (0.0-10.0); %Lymphocytes 27.6 % (21.0-51.0); %Monocytes 11.1 % (0.0-10.0); %Neutrophils 52.9 % (42.0-75.0); Hemoglobin 11.6 g/dL (12.0-16.0); Mean Corpuscular HGB CONC 32.9 g/dL (32.0-36.0); Mean Corpuscular Hemoglobin 31.3 pg (27.0-31.0); Mean Corpuscular Volume 95.2 fl (81.0-99.0); Mean Platelet Volume 6.9 fL (7.4-10.4); Platelet Count 288 thou/uL (130-400); RBC Distribution Width 13.7 % (11.5-14.5); White Blood Cell (WBC) Count 6.8 thou/uL (4.8-10.8)
[2017-05-29 06:11] LABS: Anion Gap 15 mmol/L (10-20); BUN (Urea Nitrogen) 32 mg/dL (9.8-20.1); Calc. Creatinine Clearance 66 mL/min (70-130); Calcium 9.6 mg/dL (7.8-10.44); Carbon Dioxide 29 mmol/L (23-31); Chloride 103 mmol/L (98-107); Estimated GFR-MDRD 52; Glucose 85 mg/dL (80-115); Sodium 143 mmol/L (136-145)
[2017-05-29] MEDS: Bupropion 150 MG XL TAB PO SCH (08:28)
[2017-05-29] MEDS: Gabapentin 300 MG CAP PO SCH ×2 (08:29→21:06)
[2017-05-29] MEDS: Calcium Carbonate + Vit D 1 TAB PO SCH (08:29)
[2017-05-29] MEDS: Docusate 100 MG CAP PO SCH ×2 (08:29→21:06)
[2017-05-29] MEDS: Hydroxychloroquine Sulfate 200 MG TAB PO SCH (08:30)
[2017-05-29] MEDS: Hydrochlorothiazide 25 MG TAB PO SCH (08:30)
[2017-05-29] MEDS: Isosorbide Dinitrate 20 MG TAB PO SCH (08:30)
[2017-05-29] MEDS: BIOTIN 5 MG PO SCH (08:31)
[2017-05-29] MEDS: [UNRECOGNIZED DRUG - OTHER] PO SCH (08:31)
[2017-05-29] MEDS: OMEGA PO SCH (08:31)
[2017-05-29] MEDS: Sucralfate 1 GM TAB PO SCH ×4 (08:32→21:06)
[2017-05-29] MEDS: TROSPIUM 20 MG TABLET PO SCH ×2 (08:32→21:06)
[2017-05-29] MEDS: Valsartan 80 MG TAB PO SCH (08:32)
[2017-05-29] MEDS: Triamcinolone 0.025 % Cream 15GM TUBE TOP SCH ×2 (08:32→21:07)
[2017-05-29] MEDS: HYDROcodone/Acetaminophen 5/325 mg Tablet PO PRN (08:34)
--- NOTE | 2017-05-29 13:25 | PRG ---
DATE OF SERVICE: 05/29/2017 SUBJECTIVE: Ms. Natoin is doing well. Denies any complaints, resting comfortably. She states that s he still has difficulty with ambulation due to weakness in her right leg. OBJECTIVE: VITAL SIGNS: She is afebrile, heart rate 72, respirations 18, oxygen saturation 98% on room air, blo od pressure 122/58. CARDIOVASCULAR SYSTEM: S1, S2 plus. RESPIRATORY SYSTEM: Normal vesicular breath sounds. ABDOMEN: Soft, nontender, bowel sounds heard in all quadrants. EXTREMITIES: Without cyanosis or clubbing. CENTRAL NERVOUS SYSTEM: Right-sided weakness. IMPRESSION: 1. Intracranial hemorrhage with right-sided weakness. 2. Persistence of cerebral aneurysm requiring outpatient followup with Neurosurgery. 3. Hypertension well controlled. 4. Hypotension, resolved. 5. Discoid lupus. 6. Rheumatoid arthritis. 7. Deconditioning. 8. Gastroesophageal reflux disease. PLAN: 1. Continue current medications. 2. Nutritional support. 3. DVT and stress ulcer prophylaxis. 4. Decubitus precautions. 5. Physical therapy. 6. Monitor neurological status. 7. No family at bedside.
[2017-05-29] MEDS: Nicotine 21 MG PATCH TOP SCH (18:15)
[2017-05-29] MEDS: Cyclobenzaprine 10 MG TAB PO PRN (21:06)
[2017-05-29] MEDS: Atorvastatin Calcium 10 MG TAB PO SCH (21:06)
[2017-05-29] MEDS: Amlodipine 10 MG TAB PO SCH (21:06)
[2017-05-30] MEDS: Hydroxychloroquine Sulfate 200 MG TAB PO SCH (09:09)
[2017-05-30] MEDS: [UNRECOGNIZED DRUG - OTHER] PO SCH (09:09)
[2017-05-30] MEDS: OMEGA PO SCH (09:09)
[2017-05-30] MEDS: BIOTIN 5 MG PO SCH (09:10)
[2017-05-30] MEDS: Isosorbide Dinitrate 20 MG TAB PO SCH (09:10)
[2017-05-30] MEDS: Hydrochlorothiazide 25 MG TAB PO SCH (09:11)
[2017-05-30] MEDS: Sucralfate 1 GM TAB PO SCH ×4 (09:11→21:20)
[2017-05-30] MEDS: Gabapentin 300 MG CAP PO SCH ×2 (09:11→21:19)
[2017-05-30] MEDS: Valsartan 80 MG TAB PO SCH (09:11)
[2017-05-30] MEDS: Calcium Carbonate + Vit D 1 TAB PO SCH (09:11)
[2017-05-30] MEDS: Docusate 100 MG CAP PO SCH ×2 (09:11→21:19)
[2017-05-30] MEDS: Bupropion 150 MG XL TAB PO SCH (09:12)
[2017-05-30] MEDS: TROSPIUM 20 MG TABLET PO SCH ×2 (09:12→21:20)
[2017-05-30] MEDS: Triamcinolone 0.025 % Cream 15GM TUBE TOP SCH (09:19)
--- NOTE | 2017-05-30 10:09 | PRG ---
DATE OF SERVICE: 05/30/2017 SUBJECTIVE: Ms. Nation is doing well. Denies any complaints, resting comfortably, tolerating her the rapy. Discussed with therapy and she still needs 2-3 person assist. Her blood pressures have remain ed stable. No issues. OBJECTIVE: VITAL SIGNS: She is afebrile, heart rate 74, respirations 20, oxygen saturation 94% room air, blood pressure 135/69. CARDIOVASCULAR: S1, S2 plus. RESPIRATORY: Normal vesicular breath sounds. ABDOMEN: Soft, nontender, bowel sounds heard in all quadrants. EXTREMITIES: Without cyanosis or clubbing. CENTRAL NERVOUS SYSTEM: Persistent right-sided weakness. IMPRESSION: 1. Intracerebral hemorrhage accident with right-sided weakness. 2. Hypertension, well controlled. 3. Discoid lupus. 4. Rheumatoid arthritis. 5. Degenerative joint disease. 6. Deconditioning. 7. Gastroesophageal reflux disease. 8. Presence of cerebral aneurysm requiring outpatient followup with Neurosurgery. PLAN: 1. Continue current medications. 2. Nutritional support. 3. Heart healthy diet. 4. DVT and stress ulcer prophylaxis. 5. Decubitus precautions. 6. Routine laboratory values. Discussed with patient and therapy.
[2017-05-30] MEDS: HYDROcodone/Acetaminophen 5/325 mg Tablet PO PRN ×2 (14:41→21:20)
[2017-05-30] MEDS: Nicotine 21 MG PATCH TOP SCH (17:21)
[2017-05-30] MEDS: Amlodipine 10 MG TAB PO SCH (21:19)
[2017-05-30] MEDS: Atorvastatin Calcium 10 MG TAB PO SCH (21:19)
[2017-05-30] MEDS: Triamcinolone 0.1% Cream 15 GM TUBE TOP SCH (21:22)
[2017-05-31] MEDS: HYDROcodone/Acetaminophen 5/325 mg Tablet PO PRN ×3 (03:52→20:50)
[2017-05-31] MEDS: Sucralfate 1 GM TAB PO SCH ×4 (08:40→20:49)
[2017-05-31] MEDS: Hydroxychloroquine Sulfate 200 MG TAB PO SCH (08:40)
[2017-05-31] MEDS: Gabapentin 300 MG CAP PO SCH ×2 (08:40→20:49)
[2017-05-31] MEDS: Docusate 100 MG CAP PO SCH ×2 (08:40→20:49)
[2017-05-31] MEDS: Bupropion 150 MG XL TAB PO SCH (08:41)
[2017-05-31] MEDS: Valsartan 80 MG TAB PO SCH (08:41)
[2017-05-31] MEDS: Calcium Carbonate + Vit D 1 TAB PO SCH (08:42)
[2017-05-31] MEDS: BIOTIN 5 MG PO SCH (08:42)
[2017-05-31] MEDS: [UNRECOGNIZED DRUG - OTHER] PO SCH (08:42)
[2017-05-31] MEDS: Hydrochlorothiazide 25 MG TAB PO SCH (08:42)
[2017-05-31] MEDS: TROSPIUM 20 MG TABLET PO SCH ×2 (08:42→20:49)
[2017-05-31] MEDS: OMEGA PO SCH (08:42)
[2017-05-31] MEDS: Isosorbide Dinitrate 20 MG TAB PO SCH (08:42)
[2017-05-31] MEDS: Triamcinolone 0.1% Cream 15 GM TUBE TOP SCH ×2 (08:43→20:57)
--- NOTE | 2017-05-31 15:22 | PRG ---
DATE OF SERVICE: 05/31/2017 SUBJECTIVE: Ms. Nation is doing well. Denies any complaints, resting comfortably. She had a fall ye sterday. She apparently bumped her head on the dresser. No loss of consciousness, no headache, no b lurred vision. Neuro checks have been normal. OBJECTIVE: VITAL SIGNS: She is afebrile. Heart rate is 90, respirations are 23, oxygen saturation 95% and bloo d pressure 105/61. CARDIOVASCULAR SYSTEM: S1 and S2 plus. RESPIRATORY SYSTEM: Normal vesicular breath sounds. ABDOMEN: Soft and nontender. Bowel sounds heard in all quadrants. EXTREMITIES: Without cyanosis or clubbing. CENTRAL NERVOUS SYSTEM: Persistent right lower extremity weakness. IMPRESSION: 1. Intracranial hemorrhage status with resulting right-sided weakness. 2. Status post fall yesterday without any deficits. 3. Hypertension. 4. Discoid lupus. 5. Rheumatoid arthritis. 6. Degenerative joint disease. 7. Deconditioning. 8. Gastroesophageal reflux disease. PLAN: 1. Continue current medications. 2. Nutritional support. 3. Fall precautions. 4. DVT and stress ulcer prophylaxis. 5. Decubitus precautions. 6. Physical therapy. 7. Routine laboratory values.
[2017-05-31] MEDS: Nicotine 21 MG PATCH TOP SCH (17:46)
[2017-05-31] MEDS: Amlodipine 10 MG TAB PO SCH (20:49)
[2017-05-31] MEDS: Atorvastatin Calcium 10 MG TAB PO SCH (20:49)
[2017-06-01] MEDS: [UNRECOGNIZED DRUG - OTHER] PO SCH (09:50)
[2017-06-01] MEDS: OMEGA PO SCH (09:50)
[2017-06-01] MEDS: BIOTIN 5 MG PO SCH (09:50)
[2017-06-01] MEDS: Sucralfate 1 GM TAB PO SCH ×4 (09:51→21:04)
[2017-06-01] MEDS: Hydrochlorothiazide 25 MG TAB PO SCH (09:51)
[2017-06-01] MEDS: Calcium Carbonate + Vit D 1 TAB PO SCH (09:51)
[2017-06-01] MEDS: Docusate 100 MG CAP PO SCH ×2 (09:51→21:05)
[2017-06-01] MEDS: Bupropion 150 MG XL TAB PO SCH (09:52)
[2017-06-01] MEDS: Isosorbide Dinitrate 20 MG TAB PO SCH (09:52)
[2017-06-01] MEDS: Triamcinolone 0.1% Cream 15 GM TUBE TOP SCH ×2 (09:53→21:06)
[2017-06-01] MEDS: Hydroxychloroquine Sulfate 200 MG TAB PO SCH (09:53)
[2017-06-01] MEDS: Gabapentin 300 MG CAP PO SCH ×2 (09:53→21:05)
[2017-06-01] MEDS: TROSPIUM 20 MG TABLET PO SCH ×2 (09:53→21:04)
[2017-06-01] MEDS: Valsartan 80 MG TAB PO SCH (09:54)
[2017-06-01] MEDS: HYDROcodone/Acetaminophen 5/325 mg Tablet PO PRN ×2 (11:29→18:16)
--- NOTE | 2017-06-01 17:28 | PRG ---
DATE OF SERVICE: 06/01/2017 SUBJECTIVE: Ms. Nation is doing well. Denies any complaints, resting comfortably, no further falls. I discussed with family. She is noticing some tingling and some jerking in her right side that is t he side affected by her intracerebral hemorrhage. She is not having any headaches or blurred vision. OBJECTIVE: VITAL SIGNS: She is afebrile, heart rate is 80, respirations 20, oxygen saturation 95% on room air, AND blood pressure 128/66. CARDIOVASCULAR SYSTEM: S1, S2 plus. RESPIRATORY SYSTEM: Normal vesicular breath sounds. ABDOMEN: Soft, nontender, bowel sounds heard in all quadrants. EXTREMITIES: Without cyanosis or clubbing. CENTRAL NERVOUS SYSTEM: Right-sided weakness. IMPRESSION: 1. Intracerebral hemorrhage with right-sided weakness with slow improvement. 2. Hypertension, well controlled. 3. Discoid lupus, stable. 4. Rheumatoid arthritis. 5. Deconditioning, slow improvement. 6. Gastroesophageal reflux disease. PLAN: 1. Continue current medications. 2. Nutritional support. 3. Physical therapy. 4. Fall precautions. 5. DVT and stress ulcer prophylaxis. 6. Decubitus precautions. 7. Routine laboratory values. 8. Discussed with patient and family in detail. All questions answered.
[2017-06-01] MEDS: Nicotine 21 MG PATCH TOP SCH (18:16)
[2017-06-01] MEDS: Atorvastatin Calcium 10 MG TAB PO SCH (21:04)
[2017-06-01] MEDS: Amlodipine 10 MG TAB PO SCH (21:05)
[2017-06-02] MEDS: Bupropion 150 MG XL TAB PO SCH (09:19)
[2017-06-02] MEDS: Hydrochlorothiazide 25 MG TAB PO SCH (09:19)
[2017-06-02] MEDS: Docusate 100 MG CAP PO SCH ×2 (09:19→22:20)
[2017-06-02] MEDS: Hydroxychloroquine Sulfate 200 MG TAB PO SCH (09:19)
[2017-06-02] MEDS: Calcium Carbonate + Vit D 1 TAB PO SCH (09:19)
[2017-06-02] MEDS: Gabapentin 300 MG CAP PO SCH ×2 (09:19→22:19)
[2017-06-02] MEDS: BIOTIN 5 MG PO SCH (09:20)
[2017-06-02] MEDS: Isosorbide Dinitrate 20 MG TAB PO SCH (09:20)
[2017-06-02] MEDS: [UNRECOGNIZED DRUG - OTHER] PO SCH (09:21)
[2017-06-02] MEDS: Sucralfate 1 GM TAB PO SCH ×4 (09:21→22:20)
[2017-06-02] MEDS: OMEGA PO SCH (09:21)
[2017-06-02] MEDS: TROSPIUM 20 MG TABLET PO SCH ×2 (09:22→22:19)
[2017-06-02] MEDS: Triamcinolone 0.1% Cream 15 GM TUBE TOP SCH ×2 (09:22→22:21)
[2017-06-02] MEDS: Valsartan 80 MG TAB PO SCH (09:22)
[2017-06-02] MEDS: HYDROcodone/Acetaminophen 5/325 mg Tablet PO PRN ×2 (12:15→22:20)
--- NOTE | 2017-06-02 13:24 | PRG ---
DATE OF SERVICE: 06/02/2017 SUBJECTIVE: Ms. Nation is doing well. Denies any complaints, resting comfortably, tolerating her the rapy. No further falls. OBJECTIVE: VITAL SIGNS: She is afebrile, heart rate 75, respirations 20, oxygen saturation 94% on room air, blo od pressure 127/62. CARDIOVASCULAR SYSTEM: S1, S2 plus. RESPIRATORY SYSTEM: Normal vascular breath sounds. ABDOMEN: Soft, nontender, bowel sounds heard in all quadrants. EXTREMITIES: Without cyanosis or clubbing. Persistent right-sided weakness. IMPRESSION: 1. Intracerebral hemorrhage with right-sided weakness. 2. Hypertension well controlled. 3. Discoid lupus. 4. Rheumatoid arthritis. 5. Deconditioning. PLAN: 1. Continue current medications. 2. Nutritional support. 3. DVT and stress ulcer prophylaxis. 4. Decubitus precautions. 5. Physical therapy. 6. Routine laboratory values. 7. Discussed with patient in detail, all questions answered.
[2017-06-02] MEDS: Nicotine 21 MG PATCH TOP SCH (17:35)
[2017-06-02] MEDS: Atorvastatin Calcium 10 MG TAB PO SCH (22:19)
[2017-06-02] MEDS: Amlodipine 10 MG TAB PO SCH (22:19)
[2017-06-03] MEDS: Calcium Carbonate + Vit D 1 TAB PO SCH (08:43)
[2017-06-03] MEDS: Bupropion 150 MG XL TAB PO SCH (08:43)
[2017-06-03] MEDS: Hydroxychloroquine Sulfate 200 MG TAB PO SCH (08:44)
[2017-06-03] MEDS: Gabapentin 300 MG CAP PO SCH ×2 (08:44→20:08)
[2017-06-03] MEDS: Hydrochlorothiazide 25 MG TAB PO SCH (08:44)
[2017-06-03] MEDS: Docusate 100 MG CAP PO SCH ×2 (08:44→20:08)
[2017-06-03] MEDS: Isosorbide Dinitrate 20 MG TAB PO SCH (08:44)
[2017-06-03] MEDS: BIOTIN 5 MG PO SCH (08:45)
[2017-06-03] MEDS: [UNRECOGNIZED DRUG - OTHER] PO SCH (08:45)
[2017-06-03] MEDS: OMEGA PO SCH (08:45)
[2017-06-03] MEDS: Sucralfate 1 GM TAB PO SCH ×4 (08:46→20:08)
[2017-06-03] MEDS: Triamcinolone 0.1% Cream 15 GM TUBE TOP SCH ×2 (08:46→20:08)
[2017-06-03] MEDS: TROSPIUM 20 MG TABLET PO SCH ×2 (08:46→20:11)
[2017-06-03] MEDS: HYDROcodone/Acetaminophen 5/325 mg Tablet PO PRN (08:47)
[2017-06-03] MEDS: Valsartan 80 MG TAB PO SCH (08:47)
[2017-06-03] MEDS: Acetaminophen 325 MG TAB PO PRN (13:24)
--- NOTE | 2017-06-03 14:12 | PRG ---
DATE OF SERVICE: 06/03/2017 SUBJECTIVE: Ms. Nation is doing well. Denies any complaints. She states that she is slowly improvin g. No further falls. Discussed with nursing. OBJECTIVE: VITAL SIGNS: She is afebrile, heart rate 81, respirations 22, oxygen saturation 97% on room air, blo od pressure 129/71. CARDIOVASCULAR: S1, S2 plus. RESPIRATORY: Normal vesicular breath sounds. ABDOMEN: Soft, nontender, bowel sounds heard in all quadrants. EXTREMITIES: Without cyanosis or clubbing. Improving right-sided weakness. IMPRESSION: 1. Intracerebral hemorrhage with right-sided weakness, slow improvement. 2. Hypertension, well controlled. 3. Discoid lupus. 4. Rheumatoid arthritis. 5. Deconditioning. PLAN: 1. Continue current medications. 2. Nutritional support. 3. Deep venous thrombosis and stress ulcer prophylaxis. 4. Decubitus precautions. 5. Routine laboratory values. 6. Physical therapy. 7. Dr. Tonya Hernández occupational health coordinator now until 9:00 p.m. June.
[2017-06-03] MEDS: Nicotine 21 MG PATCH TOP SCH (18:24)
[2017-06-03] MEDS: Atorvastatin Calcium 10 MG TAB PO SCH (20:08)
[2017-06-03] MEDS: Amlodipine 10 MG TAB PO SCH (20:08)
[2017-06-04] MEDS: HYDROcodone/Acetaminophen 5/325 mg Tablet PO PRN ×2 (07:54→22:15)
[2017-06-04] MEDS: OMEGA PO SCH (08:29)
[2017-06-04] MEDS: [UNRECOGNIZED DRUG - OTHER] PO SCH (08:29)
[2017-06-04] MEDS: BIOTIN 5 MG PO SCH (08:29)
[2017-06-04] MEDS: Gabapentin 300 MG CAP PO SCH ×2 (08:30→22:20)
[2017-06-04] MEDS: Sucralfate 1 GM TAB PO SCH ×4 (08:30→22:20)
[2017-06-04] MEDS: Isosorbide Dinitrate 20 MG TAB PO SCH (08:30)
[2017-06-04] MEDS: Hydroxychloroquine Sulfate 200 MG TAB PO SCH (08:30)
[2017-06-04] MEDS: TROSPIUM 20 MG TABLET PO SCH ×2 (08:31→22:19)
[2017-06-04] MEDS: Hydrochlorothiazide 25 MG TAB PO SCH (08:31)
[2017-06-04] MEDS: Bupropion 150 MG XL TAB PO SCH (08:31)
[2017-06-04] MEDS: Calcium Carbonate + Vit D 1 TAB PO SCH (08:31)
[2017-06-04] MEDS: Docusate 100 MG CAP PO SCH ×2 (08:32→22:20)
[2017-06-04] MEDS: Triamcinolone 0.1% Cream 15 GM TUBE TOP SCH ×2 (08:32→22:26)
[2017-06-04] MEDS: Valsartan 80 MG TAB PO SCH (08:32)
[2017-06-04] MEDS: Acetaminophen 325 MG TAB PO PRN (12:35)
[2017-06-04] MEDS: Nicotine 21 MG PATCH TOP SCH (17:39)
[2017-06-04] MEDS: Amlodipine 10 MG TAB PO SCH (22:18)
[2017-06-04] MEDS: Atorvastatin Calcium 10 MG TAB PO SCH (22:19)
--- NOTE | 2017-06-04 23:08 | PRG ---
DATE OF SERVICE: 06/04/2017 DATE OF ADMISSION: 05/20/2017 HISTORY OF PRESENT ILLNESS: Ms. Nation is a very pleasant 66-year-old female who went to the ER in [facility] with severe headache. She was found to have right and left sup ratentorial hemorrhage. She was evaluated at the hospital, seen by Neurosurgery and it was felt that she could be managed conservatively. Aggrenox was stopped. She was sent home and then she was spencer sferred to [facility] for PT, OT, and neurological monitoring. SUBJECTIVE: The patient states she is still very weak, but is slowly getting better. PHYSICAL EXAMINATION: VITAL SIGNS: Today reveal blood pressure 128/72, pulse 74 to 81, respirations 18 to 20, O2 sat 93 to 97% on room air, T-max 98.5. GENERAL: This is a well-developed, well-nourished, very pleasant white female in no apparent distres s at this time. HEENT: Reveals normocephalic, nontraumatic cranium. Pupils are equal, round, reactive. Extraocular movements intact. Nose and throat are slightly dry. NECK: Supple, without mass, nodes or bruits. LUNGS: Chest is clear to auscultation. No rales, rhonchi, wheezes or cough is heard. HEART: Reveals a regular rate and rhythm without murmurs, gallops or rubs. ABDOMEN: Soft, nontender, without organomegaly. Normal bowel sounds are heard in all 4 quadrants. No rebound or guarding is noted. : Deferred. EXTREMITIES: Reveal no clubbing, cyanosis or edema. NEUROLOGIC: The patient is oriented to person, place, and time. IMPRESSION: 1. Intracerebral hemorrhage with right-sided weakness. 2. Hypertension. 3. Rheumatoid arthritis. 4. Hyperlipidemia. 5. Overactive bladder. 6. History of peptic ulcer disease. 7. Depression. 8. History of cerebrovascular accident in the past. PLAN: 1. Continue present medications. 2. Continue stress ulcer prophylaxis. 3. Continue deep venous thrombosis prophylaxis. 4. Wean hydrocodone as able. 5. Continue present medications. 6. Routine labs as p.r.n. 7. Continue physical therapy and occupational therapy.
[2017-06-05] MEDS: Docusate 100 MG CAP PO SCH ×2 (08:50→21:15)
[2017-06-05] MEDS: Sucralfate 1 GM TAB PO SCH ×4 (08:50→21:17)
[2017-06-05] MEDS: Calcium Carbonate + Vit D 1 TAB PO SCH (08:50)
[2017-06-05] MEDS: Hydroxychloroquine Sulfate 200 MG TAB PO SCH (08:50)
[2017-06-05] MEDS: TROSPIUM 20 MG TABLET PO SCH ×2 (08:50→21:17)
[2017-06-05] MEDS: Isosorbide Dinitrate 20 MG TAB PO SCH (08:50)
[2017-06-05] MEDS: Gabapentin 300 MG CAP PO SCH ×2 (08:50→21:16)
[2017-06-05] MEDS: Bupropion 150 MG XL TAB PO SCH (08:51)
[2017-06-05] MEDS: Valsartan 80 MG TAB PO SCH (08:51)
[2017-06-05] MEDS: Hydrochlorothiazide 25 MG TAB PO SCH (08:51)
[2017-06-05] MEDS: OMEGA PO SCH (08:53)
[2017-06-05] MEDS: [UNRECOGNIZED DRUG - OTHER] PO SCH (08:53)
[2017-06-05] MEDS: BIOTIN 5 MG PO SCH (08:54)
[2017-06-05] MEDS: Triamcinolone 0.1% Cream 15 GM TUBE TOP SCH ×2 (09:12→21:18)
[2017-06-05] MEDS: Acetaminophen 325 MG TAB PO PRN ×2 (14:20→23:18)
[2017-06-05] MEDS: Nicotine 21 MG PATCH TOP SCH (18:02)
[2017-06-05] MEDS: Atorvastatin Calcium 10 MG TAB PO SCH (21:16)
[2017-06-05] MEDS: Amlodipine 10 MG TAB PO SCH (21:18)
--- NOTE | 2017-06-05 22:05 | PRG ---
DATE OF SERVICE: 06/05/2017 HISTORY OF PRESENT ILLNESS: Ms. Nation is a pleasant 66-year-old female that went to the [facility] ED with severe headaches. She was found to have right and left subdural hem orrhage. She was evaluated at the hospital, seen by Neurology and felt that it can be managed conser vatively. Her Aggrenox was stopped. Eventually, she was stabilized and transferred to [facility] for PT, OT, and neurological monitoring. The patient states she is doing well and thinks she may be getting slowly better. She states Dr. Ankita tobias has not told her when her discharge date is. PHYSICAL EXAMINATION: VITAL SIGNS: Blood pressure 144/66, pulse 77-80, respirations 18, O2 sat 96% on room air, T-max 98.2 . GENERAL: This is a well-developed, well-nourished, very pleasant white female in no apparent distres s at this time. HEENT: Reveals normocephalic, nontraumatic cranium. Pupils are equal, round, and reactive. Extraoc ular movements intact. Nose and throat are moist. NECK: Supple, without mass, nodes, bruits. CHEST: Clear to auscultation. No rales, rhonchi, wheezes or cough is heard. CARDIOVASCULAR: Heart reveals a regular rate and rhythm without murmurs, gallops or rubs. ABDOMEN: Obese, soft, nontender, without organomegaly, normal bowel sounds are noted. No rebound or guarding is noted. : Deferred. EXTREMITIES: Reveal no clubbing, cyanosis or edema. NEUROLOGIC: The patient is oriented to person, place, and time. IMPRESSION: 1. Intracerebral hemorrhage with right-sided weakness. 2. Hypertension. 3. Rheumatoid arthritis. 4. Hyperlipidemia. 5. History of peptic ulcer disease. 6. Depression. 7. History of overactive bladder. 8. History of cerebrovascular accident in the past. PLAN: 1. Continue physical therapy and occupational therapy. 2. Labs tomorrow morning. 3. Continue present meds. 4. Stress ulcer prophylaxis. 5. DVT prophylaxis. 6. Wean hydrocodone as able. 7. Decubitus precautions. 8. Physical therapy and occupational therapy.
[2017-06-06 06:45] LABS: Anion Gap 14 mmol/L (10-20); BUN (Urea Nitrogen) 29 mg/dL (9.8-20.1); Calc. Creatinine Clearance 60 mL/min (70-130); Calcium 9.8 mg/dL (7.8-10.44); Carbon Dioxide 29 mmol/L (23-31); Chloride 104 mmol/L (98-107); Estimated GFR-MDRD 48; Glucose 85 mg/dL (80-115); Potassium 3.3 mmol/L (3.5-5.1); Sodium 144 mmol/L (136-145)
[2017-06-06 08:23] LABS: #Basophils 0.1 thou/uL (0.0-0.2); #Eosinphils 0.5 thou/uL (0.0-0.7); #Monocytes 0.6 thou/uL (0.11-0.59); #Neutrophils 4.4 thou/uL (1.40-6.50); %Basophils 1.4 % (0.0-1.0); %Eosinophils 7.1 % (0.0-10.0); %Lymphocytes 26.4 % (21.0-51.0); %Monocytes 8.2 % (0.0-10.0); %Neutrophils 56.9 % (42.0-75.0); Hemoglobin 12.3 g/dL (12.0-16.0); Mean Corpuscular HGB CONC 33.1 g/dL (32.0-36.0); Mean Corpuscular Hemoglobin 30.9 pg (27.0-31.0); Mean Corpuscular Volume 93.2 fl (81.0-99.0); Mean Platelet Volume 6.8 fL (7.4-10.4); Platelet Count 275 thou/uL (130-400); RBC Distribution Width 13.3 % (11.5-14.5); Red Blood Cell (RBC) Count 3.98 mill/uL (4.20-5.40); White Blood Cell (WBC) Count 7.7 thou/uL (4.8-10.8)
[2017-06-06] MEDS: OMEGA PO SCH (08:40)
[2017-06-06] MEDS: [UNRECOGNIZED DRUG - OTHER] PO SCH (08:40)
[2017-06-06] MEDS: BIOTIN 5 MG PO SCH (08:40)
[2017-06-06] MEDS: Hydroxychloroquine Sulfate 200 MG TAB PO SCH (08:41)
[2017-06-06] MEDS: Docusate 100 MG CAP PO SCH ×2 (08:41→20:48)
[2017-06-06] MEDS: Sucralfate 1 GM TAB PO SCH ×4 (08:41→20:48)
[2017-06-06] MEDS: Calcium Carbonate + Vit D 1 TAB PO SCH (08:42)
[2017-06-06] MEDS: Triamcinolone 0.1% Cream 15 GM TUBE TOP SCH ×2 (08:42→20:52)
[2017-06-06] MEDS: Bupropion 150 MG XL TAB PO SCH (08:42)
[2017-06-06] MEDS: Hydrochlorothiazide 25 MG TAB PO SCH (08:42)
[2017-06-06] MEDS: Valsartan 80 MG TAB PO SCH (08:42)
[2017-06-06] MEDS: TROSPIUM 20 MG TABLET PO SCH ×2 (08:42→20:48)
[2017-06-06] MEDS: Gabapentin 300 MG CAP PO SCH ×2 (08:42→20:48)
[2017-06-06] MEDS: Isosorbide Dinitrate 20 MG TAB PO SCH (08:42)
[2017-06-06] MEDS: Nicotine 21 MG PATCH TOP SCH (17:47)
[2017-06-06] MEDS: Atorvastatin Calcium 10 MG TAB PO SCH (20:48)
[2017-06-06] MEDS: HYDROcodone/Acetaminophen 5/325 mg Tablet PO PRN (20:48)
[2017-06-06] MEDS: Amlodipine 10 MG TAB PO SCH (20:51)
--- NOTE | 2017-06-06 22:44 | PRG ---
DATE OF ADMISSION: 05/20/2017 DATE OF SERVICE: 06/06/2017 SUBJECTIVE: Ms. Nation is a pleasant 66-year-old female that presented herself to the emerge ncy room at [facility] with severe headaches. She was found to have right and le ft subdural hemorrhage. She was evaluated at the hospital by Neurology and they decided to manage it conservatively. Aggrenox was stopped. Initially, she was stabilized and transferred to [facility] for PT, OT, to increase her strength and her stamina. The patient states she is doing well and she is moving around in bed more and able to do more. OBJECTIVE: VITAL SIGNS: Reveal blood pressure this morning was 113/69, pulse 71 to 80, respirations 18 to 19, O 2 sat 94% to 96% on room air, T-max 98.7. GENERAL: This is a well-developed, well-nourished, very pleasant, slightly obese female in no apparent distress at this time. HEENT: Reveals normocephalic, nontraumatic cranium. Pupils are equally round and reactive. Extraoc ular movements intact. Nose and throat are slightly dry. NECK: Supple, without mass, nodes or bruits. CHEST: Clear to auscultation. No rales, rhonchi, or wheezes are heard. CARDIOVASCULAR: Reveals a regular rate and rhythm without murmurs, gallops, or rubs. ABDOMEN: Soft, without organomegaly, normal bowel sounds are noted. No rebound or guarding is noted . : Deferred. EXTREMITIES: Reveal no clubbing, cyanosis, or edema. NEUROLOGIC: The patient is oriented to person, place, and time. LABORATORY DATA: Reveals white count 7700 with hemoglobin 12.3, hematocrit 37.1 and a platelet count 275,000. Electrolytes reveal sodium 144, potassium 3.3, BUN 29, creatinine 1.14, glucose 85. IMPRESSION: 1. Intracerebral hemorrhage with right-sided weakness. 2. Hypertension. 3. Rheumatoid arthritis. 4. Hyperlipidemia. 5. History of peptic ulcer disease. 6. Depression. 7. History of overactive bladder. 8. History of cerebrovascular accident in the past. PLAN: 1. Continue PT and OT. 2. Continue present meds. 3. Stress ulcer prophylaxis. 4. Deep venous thrombosis prophylaxis. 5. Continue to wean hydrocodone as able. 6. Decubitus precautions. 7. Physical therapy and occupational therapy.
[2017-06-07] MEDS: Bupropion 150 MG XL TAB PO SCH (08:38)
[2017-06-07] MEDS: Docusate 100 MG CAP PO SCH ×2 (08:38→21:00)
[2017-06-07] MEDS: Calcium Carbonate + Vit D 1 TAB PO SCH (08:38)
[2017-06-07] MEDS: Hydrochlorothiazide 25 MG TAB PO SCH (08:39)
[2017-06-07] MEDS: Hydroxychloroquine Sulfate 200 MG TAB PO SCH (08:39)
[2017-06-07] MEDS: Gabapentin 300 MG CAP PO SCH ×2 (08:39→21:01)
[2017-06-07] MEDS: Isosorbide Dinitrate 20 MG TAB PO SCH (08:39)
[2017-06-07] MEDS: BIOTIN 5 MG PO SCH (08:40)
[2017-06-07] MEDS: OMEGA PO SCH (08:41)
[2017-06-07] MEDS: Sucralfate 1 GM TAB PO SCH ×4 (08:41→21:01)
[2017-06-07] MEDS: [UNRECOGNIZED DRUG - OTHER] PO SCH (08:41)
[2017-06-07] MEDS: TROSPIUM 20 MG TABLET PO SCH ×2 (08:42→21:01)
[2017-06-07] MEDS: Valsartan 80 MG TAB PO SCH (08:42)
[2017-06-07] MEDS: Triamcinolone 0.1% Cream 15 GM TUBE TOP SCH ×2 (08:42→21:02)
[2017-06-07] MEDS: HYDROcodone/Acetaminophen 5/325 mg Tablet PO PRN (12:10)
--- NOTE | 2017-06-07 17:32 | PRG ---
DATE OF ADMISSION: 05/20/2017 DATE OF SERVICE: 06/07/2017 HISTORY OF PRESENT ILLNESS: Ms. Nation is a 66-year-old female that presented herself to the emergenc y room at [facility] with severe headache. She was found to have right and left subdural hematoma. She was evaluated by the neurologist and decided to manage it conservatively. He r Aggrenox was stopped. She was stabilized and transferred to [facility] for physica l therapy and occupational therapy to increase her strength and stamina. SUBJECTIVE: The patient states she is doing very well and has no complaints today. She is at the da y off since therapy is not here on Friday and Friday. OBJECTIVE: VITAL SIGNS: Blood pressure 143/81, pulse 75-80, respirations 18, O2 saturation 98% on room air, T-m ax 98.7. GENERAL: This is a well-developed, well-nourished, very pleasant white female, in no apparent distre ss at this time. HEENT: Reveals normocephalic, nontraumatic cranium. Pupils are equally round and reactive. Extraoc ular movements are intact. Nose and throat are slightly dry. NECK: Supple, without masses, nodes or bruits. CHEST: Clear to auscultation. No rales, rhonchi or wheezes are heard. CARDIOVASCULAR: Reveals a regular rate and rhythm without murmurs, gallops or rubs. ABDOMEN: Obese, soft, nontender, without organomegaly, normal bowel sounds are noted. No rebound or guarding is noted. : Deferred. EXTREMITIES: Reveal no clubbing, cyanosis or edema. NEUROLOGIC: The patient is oriented to person, place, and time. IMPRESSION: 1. Intracranial hemorrhage with resultant right-sided weakness. 2. Hypertension. 3. Rheumatoid arthritis. 4. Hyperlipidemia. 5. History of depression. 6. History of overactive bladder. 7. History of cerebrovascular accident in the past. 8. History of peptic ulcer disease. 9. Generalized weakness. PLAN: 1. Continue to monitor the patient's blood pressure closely. 2. Continue to monitor the patient's vital signs and make sure she stays alert and oriented. 3. Monitor the patient's arthritis. 4. Stress ulcer prophylaxis. 5. Deep venous thrombosis prophylaxis. 6. Decubitus precautions. 7. Physical therapy and occupational therapy.
[2017-06-07] MEDS: Nicotine 21 MG PATCH TOP SCH (18:47)
[2017-06-07] MEDS: Amlodipine 10 MG TAB PO SCH (21:01)
[2017-06-07] MEDS: Atorvastatin Calcium 10 MG TAB PO SCH (21:01)
[2017-06-07] MEDS: Cyclobenzaprine 10 MG TAB PO PRN (21:03)
[2017-06-08] MEDS: Hydrochlorothiazide 25 MG TAB PO SCH (09:46)
[2017-06-08] MEDS: Calcium Carbonate + Vit D 1 TAB PO SCH (09:46)
[2017-06-08] MEDS: Docusate 100 MG CAP PO SCH ×2 (09:46→21:19)
[2017-06-08] MEDS: Bupropion 150 MG XL TAB PO SCH (09:46)
[2017-06-08] MEDS: Gabapentin 300 MG CAP PO SCH ×2 (09:46→21:19)
[2017-06-08] MEDS: Hydroxychloroquine Sulfate 200 MG TAB PO SCH (09:47)
[2017-06-08] MEDS: Isosorbide Dinitrate 20 MG TAB PO SCH (09:47)
[2017-06-08] MEDS: BIOTIN 5 MG PO SCH (09:48)
[2017-06-08] MEDS: [UNRECOGNIZED DRUG - OTHER] PO SCH (09:49)
[2017-06-08] MEDS: Sucralfate 1 GM TAB PO SCH ×4 (09:49→21:19)
[2017-06-08] MEDS: OMEGA PO SCH (09:49)
[2017-06-08] MEDS: TROSPIUM 20 MG TABLET PO SCH ×2 (09:50→21:19)
[2017-06-08] MEDS: Valsartan 80 MG TAB PO SCH (09:50)
[2017-06-08] MEDS: Triamcinolone 0.1% Cream 15 GM TUBE TOP SCH ×2 (09:50→21:20)
[2017-06-08] MEDS: HYDROcodone/Acetaminophen 5/325 mg Tablet PO PRN (09:56)
[2017-06-08] MEDS: Nicotine 21 MG PATCH TOP SCH (18:55)
[2017-06-08] MEDS: Atorvastatin Calcium 10 MG TAB PO SCH (21:19)
[2017-06-08] MEDS: Amlodipine 10 MG TAB PO SCH (21:19)
--- NOTE | 2017-06-08 23:25 | PRG ---
DATE OF ADMISSION: 05/20/2017 DATE OF SERVICE: 06/08/2017 HISTORY OF PRESENT ILLNESS: Ms. Nation is a very pleasant 66-year-old female, who presented to emergency room at [facility] with severe headache. Evaluation revealed she had a right a nd left subdural hematoma. She was evaluated by the neurologist and was felt that it could be manage d conservatively. Her Aggrenox was stopped. She was stabilized and transferred to [facility] for PT and OT to increase her strength and stamina. SUBJECTIVE: The patient is doing very well. She has no complaints today. She states she is getting a little stronger every day. OBJECTIVE: VITAL SIGNS: Blood pressure is 115/57, pulse 76-80, respirations 18-20, O2 sat 94% to 97% on room ai r, T-max 98.2. GENERAL: This is a well-developed, well-nourished, very pleasant, female, in no apparent di stress at this time. HEENT: Reveals normocephalic, nontraumatic cranium. Pupils are equal, round, and reactive. Extraoc ular movements are intact. Nose and throat are slightly dry. NECK: Supple, without masses, nodes or bruits. CHEST: Clear to auscultation. No rales, rhonchi or wheezes are heard. CARDIOVASCULAR: Reveals a regular rate and rhythm without murmurs, gallops or rubs. ABDOMEN: Soft, nontender, without organomegaly, normal bowel sounds are noted. No rebound or guardi ng is noted. : Deferred. EXTREMITIES: Reveal no clubbing, cyanosis or edema. NEUROLOGIC: The patient is oriented to person, place, and time. IMPRESSION: 1. Intracranial hemorrhage with resultant right-sided weakness. 2. Hypertension. 3. Rheumatoid arthritis. 4. Hyperlipidemia. 5. History of depression. 6. History of overactive bladder. 7. History of cerebrovascular accident in the past. 8. History of peptic ulcer disease. 9. Generalized weakness. PLAN: 1. Continue to monitor the patient's blood pressure closely. 2. Continue to monitor the patient's arthritis. 3. Stress ulcer prophylaxis. 4. DVT prophylaxis. 5. Decubitus precautions. 6. Physical therapy and occupational therapy.
[2017-06-09] MEDS: Hydroxychloroquine Sulfate 200 MG TAB PO SCH (09:15)
[2017-06-09] MEDS: Isosorbide Dinitrate 20 MG TAB PO SCH (09:15)
[2017-06-09] MEDS: Bupropion 150 MG XL TAB PO SCH (09:15)
[2017-06-09] MEDS: TROSPIUM 20 MG TABLET PO SCH ×2 (09:15→20:26)
[2017-06-09] MEDS: Calcium Carbonate + Vit D 1 TAB PO SCH (09:15)
[2017-06-09] MEDS: Acetaminophen 325 MG TAB PO PRN ×2 (09:16→16:57)
[2017-06-09] MEDS: Docusate 100 MG CAP PO SCH ×2 (09:16→20:25)
[2017-06-09] MEDS: Gabapentin 300 MG CAP PO SCH ×2 (09:16→20:25)
[2017-06-09] MEDS: Valsartan 80 MG TAB PO SCH (09:16)
[2017-06-09] MEDS: OMEGA PO SCH (09:16)
[2017-06-09] MEDS: Hydrochlorothiazide 25 MG TAB PO SCH (09:16)
[2017-06-09] MEDS: [UNRECOGNIZED DRUG - OTHER] PO SCH (09:16)
[2017-06-09] MEDS: Sucralfate 1 GM TAB PO SCH ×4 (09:16→20:25)
[2017-06-09] MEDS: BIOTIN 5 MG PO SCH (09:17)
[2017-06-09] MEDS: Triamcinolone 0.1% Cream 15 GM TUBE TOP SCH ×2 (09:18→20:26)
[2017-06-09] MEDS: Nicotine 21 MG PATCH TOP SCH (17:50)
--- NOTE | 2017-06-09 19:43 | PRG ---
DATE OF SERVICE: 06/09/2017 SUBJECTIVE: Ms. Nation is doing well. Denies any complaints, resting comfortably, getting stronger. OBJECTIVE: VITAL SIGNS: She is afebrile, heart rate is 75, respirations 18, oxygen saturation 97% on room air, blood pressure 154/72. CARDIOVASCULAR: S1, S2 plus. RESPIRATORY: Normal vesicular breath sounds. ABDOMEN: Soft and nontender. Bowel sounds heard in all quadrants. EXTREMITIES: Without cyanosis or clubbing. CENTRAL NERVOUS SYSTEM: Improving right-sided weakness. LABORATORY VALUES: Last BUN and creatinine were 29 and 1.14 on 06/06/2017. IMPRESSION: 1. Intracerebral bleed with improving right-sided weakness. 2. Hypertension, well controlled. 3. Dyslipidemia. 4. Discoid lupus. 5. Rheumatoid arthritis. 6. Improving deconditioning. PLAN: 1. Continue current medications. 2. Nutritional support. 3. DVT and stress ulcer prophylaxis. 4. Decubitus precautions. 5. Physical therapy. 6. Discussed with the patient in detail. All questions answered.
[2017-06-09] MEDS: Amlodipine 10 MG TAB PO SCH (20:24)
[2017-06-09] MEDS: Atorvastatin Calcium 10 MG TAB PO SCH (20:25)
[2017-06-10] MEDS: OMEGA PO SCH (08:10)
[2017-06-10] MEDS: BIOTIN 5 MG PO SCH (08:10)
[2017-06-10] MEDS: [UNRECOGNIZED DRUG - OTHER] PO SCH (08:10)
[2017-06-10] MEDS: TROSPIUM 20 MG TABLET PO SCH ×2 (08:12→20:08)
[2017-06-10] MEDS: Docusate 100 MG CAP PO SCH ×2 (08:12→20:07)
[2017-06-10] MEDS: Hydrochlorothiazide 25 MG TAB PO SCH (08:12)
[2017-06-10] MEDS: Hydroxychloroquine Sulfate 200 MG TAB PO SCH (08:12)
[2017-06-10] MEDS: Calcium Carbonate + Vit D 1 TAB PO SCH (08:12)
[2017-06-10] MEDS: Bupropion 150 MG XL TAB PO SCH (08:13)
[2017-06-10] MEDS: Valsartan 80 MG TAB PO SCH (08:13)
[2017-06-10] MEDS: Sucralfate 1 GM TAB PO SCH ×4 (08:13→20:07)
[2017-06-10] MEDS: Isosorbide Dinitrate 20 MG TAB PO SCH (08:13)
[2017-06-10] MEDS: HYDROcodone/Acetaminophen 5/325 mg Tablet PO PRN (08:13)
[2017-06-10] MEDS: Gabapentin 300 MG CAP PO SCH ×2 (08:13→20:07)
[2017-06-10] MEDS: Triamcinolone 0.1% Cream 15 GM TUBE TOP SCH ×2 (08:17→20:08)
--- NOTE | 2017-06-10 13:56 | PRG ---
DATE OF SERVICE: 06/10/2017 SUBJECTIVE: Ms. Nation is doing well. Denies any complaints, resting comfortably, tolerating her the rapy, getting stronger. Her daughter is here for her case conference. OBJECTIVE: VITAL SIGNS: She is afebrile, heart rate 76, respirations 18, oxygen saturation 99% on room air, blo od pressure 150/70. CARDIOVASCULAR: S1, S2 plus. RESPIRATORY: Normal breath sounds. ABDOMEN: Soft, nontender, bowel sounds heard in all quadrants. EXTREMITIES: Without cyanosis or clubbing. CENTRAL NERVOUS SYSTEM: Improving right-sided weakness. IMPRESSION: 1. Intracerebral hemorrhage with right-sided weakness, slowly improving. 2. Hypertension, well controlled. 3. Discoid lupus. 4. Rheumatoid arthritis. 5. History of cerebrovascular accident in the past. 6. Chronic pain. PLAN: 1. Continue physical therapy. The patient is improving, not sure if she is stable enough or safe en ough to go home yet. 2. Continue current medications. 3. Physical therapy, occupational therapy. 4. Deep venous thrombosis and stress ulcer prophylaxis. 5. Decubitus precautions. 6. Routine laboratory values. 7. Discussed with her daughter in detail. All questions answered.
[2017-06-10] MEDS: Nicotine 21 MG PATCH TOP SCH (17:48)
[2017-06-10] MEDS: Amlodipine 10 MG TAB PO SCH (20:07)
[2017-06-10] MEDS: Atorvastatin Calcium 10 MG TAB PO SCH (20:07)
[2017-06-11] MEDS: Calcium Carbonate + Vit D 1 TAB PO SCH (09:01)
[2017-06-11] MEDS: Bupropion 150 MG XL TAB PO SCH (09:01)
[2017-06-11] MEDS: Isosorbide Dinitrate 20 MG TAB PO SCH (09:02)
[2017-06-11] MEDS: Hydroxychloroquine Sulfate 200 MG TAB PO SCH (09:02)
[2017-06-11] MEDS: Gabapentin 300 MG CAP PO SCH ×2 (09:02→20:05)
[2017-06-11] MEDS: Hydrochlorothiazide 25 MG TAB PO SCH (09:02)
[2017-06-11] MEDS: Docusate 100 MG CAP PO SCH ×2 (09:02→20:04)
[2017-06-11] MEDS: BIOTIN 5 MG PO SCH (09:03)
[2017-06-11] MEDS: Sucralfate 1 GM TAB PO SCH ×4 (09:04→20:05)
[2017-06-11] MEDS: Triamcinolone 0.1% Cream 15 GM TUBE TOP SCH ×2 (09:04→20:05)
[2017-06-11] MEDS: [UNRECOGNIZED DRUG - OTHER] PO SCH (09:04)
[2017-06-11] MEDS: OMEGA PO SCH (09:04)
[2017-06-11] MEDS: Valsartan 80 MG TAB PO SCH (09:05)
[2017-06-11] MEDS: HYDROcodone/Acetaminophen 5/325 mg Tablet PO PRN (09:05)
[2017-06-11] MEDS: TROSPIUM 20 MG TABLET PO SCH ×2 (09:05→20:05)
[2017-06-11] MEDS: Acetaminophen 325 MG TAB PO PRN (12:39)
--- NOTE | 2017-06-11 14:54 | PRG ---
DATE OF SERVICE: 06/11/2017 SUBJECTIVE: Ms. Nation is doing well. Denies any complaints. She apparently is much improved from t herapy, but still needs on 30/09 supervision. Still not safe to be alone. Patient is aware. No othe r concerns or questions. OBJECTIVE: VITAL SIGNS: She is afebrile, heart rate 74, respirations 20, oxygen saturation 97% on room air, blo od pressure 144/80. CARDIOVASCULAR SYSTEM: S1, S2 plus. RESPIRATORY SYSTEM: Normal vesicular breath sounds. ABDOMEN: Soft, nontender, bowel sounds heard in all quadrants. EXTREMITIES: Without cyanosis or clubbing. CENTRAL NERVOUS SYSTEM: Improving right-sided weakness. IMPRESSION: 1. Intracerebral hemorrhage accident with right-sided weakness. 2. Hypertension, well controlled. 3. Dyslipidemia. 4. Discoid lupus. 5. Rheumatoid arthritis. 6. Deconditioning. PLAN: 1. Continue current medications. 2. Nutritional support. 3. DVT and stress ulcer prophylaxis. 4. Decubitus precautions. 5. Physical therapy. 6. Routine laboratory values.
[2017-06-11] MEDS: Nicotine 21 MG PATCH TOP SCH (17:55)
[2017-06-11] MEDS: Amlodipine 10 MG TAB PO SCH (20:03)
[2017-06-11] MEDS: Atorvastatin Calcium 10 MG TAB PO SCH (20:04)
[2017-06-12] MEDS: Bupropion 150 MG XL TAB PO SCH (09:32)
[2017-06-12] MEDS: Calcium Carbonate + Vit D 1 TAB PO SCH (09:33)
[2017-06-12] MEDS: Gabapentin 300 MG CAP PO SCH ×2 (09:33→20:45)
[2017-06-12] MEDS: Docusate 100 MG CAP PO SCH ×2 (09:33→20:46)
[2017-06-12] MEDS: Hydrochlorothiazide 25 MG TAB PO SCH (09:33)
[2017-06-12] MEDS: Hydroxychloroquine Sulfate 200 MG TAB PO SCH (09:35)
[2017-06-12] MEDS: Isosorbide Dinitrate 20 MG TAB PO SCH (09:36)
[2017-06-12] MEDS: Sucralfate 1 GM TAB PO SCH ×4 (09:37→20:45)
[2017-06-12] MEDS: OMEGA PO SCH (09:37)
[2017-06-12] MEDS: [UNRECOGNIZED DRUG - OTHER] PO SCH (09:37)
[2017-06-12] MEDS: Triamcinolone 0.1% Cream 15 GM TUBE TOP SCH ×2 (09:37→20:47)
[2017-06-12] MEDS: BIOTIN 5 MG PO SCH (09:37)
[2017-06-12] MEDS: Valsartan 80 MG TAB PO SCH (09:38)
[2017-06-12] MEDS: HYDROcodone/Acetaminophen 5/325 mg Tablet PO PRN (09:38)
[2017-06-12] MEDS: TROSPIUM 20 MG TABLET PO SCH ×2 (09:38→20:46)
[2017-06-12] MEDS: Acetaminophen 325 MG TAB PO PRN (12:30)
--- NOTE | 2017-06-12 13:39 | PRG ---
DATE OF SERVICE: 06/12/2017 SUBJECTIVE: Ms. Nation is doing well. Denies any complaints, resting comfortably, tolerating her the rapy, states she is getting stronger. OBJECTIVE: VITAL SIGNS: She is afebrile, heart rate 70, respirations 20, oxygen saturation 94% on room air, blo od pressure 130/62. CARDIOVASCULAR SYSTEM: S1 and S2 plus. RESPIRATORY SYSTEM: Normal vesicular breath sounds. ABDOMEN: Soft, nontender, bowel sounds heard in all quadrants. EXTREMITIES: Without cyanosis or clubbing. CENTRAL NERVOUS SYSTEM: Improving right-sided weakness. IMPRESSION: 1. Intracranial hemorrhage with right-sided weakness. 2. Hypertension, well controlled. 3. Dyslipidemia. 4. Discoid lupus. 5. Rheumatoid arthritis. 6. Improving deconditioning. PLAN: 1. Continue current medications. 2. Nutritional support. 3. Physical therapy and occupational therapy. 4. DVT and stress ulcer prophylaxis. 5. Decubitus precautions. 6. Routine laboratory values. 7. No family at bedside.
[2017-06-12] MEDS: Nicotine 21 MG PATCH TOP SCH (18:16)
[2017-06-12] MEDS: Amlodipine 10 MG TAB PO SCH (20:45)
[2017-06-12] MEDS: Atorvastatin Calcium 10 MG TAB PO SCH (20:45)
[2017-06-12] MEDS: Cyclobenzaprine 10 MG TAB PO PRN (20:46)
--- NOTE | 2017-06-13 09:02 | PRG ---
DATE OF SERVICE: 06/13/2017 SUBJECTIVE: Ms. Nation is doing well. She is ambulating now with assistance with a 4-pronged cane. She denies any complaints. No headaches or blurred vision. OBJECTIVE: VITAL SIGNS: She is afebrile, heart rate 72, respirations 20, oxygen saturation 93% on room air, and blood pressure 150/69. CARDIOVASCULAR SYSTEM: S1, S2 plus. RESPIRATORY SYSTEM: Normal vesicular breath sounds. ABDOMEN: Soft, nontender, bowel sounds heard in all quadrants. EXTREMITIES: Without cyanosis or clubbing. CENTRAL NERVOUS SYSTEM: Improving right-sided weakness. IMPRESSION: 1. Intracerebral hemorrhage with improving right-sided weakness. 2. Hypertension, well controlled. 3. Discoid lupus. 4. Rheumatoid arthritis. 5. Gastroesophageal reflux disease. 6. History of cerebrovascular accident. 7. Dyslipidemia. 8. Hypertension. PLAN: 1. Continue current medications. 2. Nutritional support. 3. Physical therapy. 4. DVT and stress ulcer prophylaxis. 5. Decubitus precautions. 6. Routine laboratory values. 7. Dr. Alejandro Holley is on-call this weekend.
[2017-06-13] MEDS: [UNRECOGNIZED DRUG - OTHER] PO SCH (09:43)
[2017-06-13] MEDS: Isosorbide Dinitrate 20 MG TAB PO SCH (09:43)
[2017-06-13] MEDS: Hydroxychloroquine Sulfate 200 MG TAB PO SCH (09:43)
[2017-06-13] MEDS: OMEGA PO SCH (09:43)
[2017-06-13] MEDS: Calcium Carbonate + Vit D 1 TAB PO SCH (09:44)
[2017-06-13] MEDS: TROSPIUM 20 MG TABLET PO SCH ×2 (09:44→21:19)
[2017-06-13] MEDS: Docusate 100 MG CAP PO SCH ×2 (09:44→21:19)
[2017-06-13] MEDS: Hydrochlorothiazide 25 MG TAB PO SCH (09:45)
[2017-06-13] MEDS: Gabapentin 300 MG CAP PO SCH ×2 (09:45→21:19)
[2017-06-13] MEDS: Valsartan 80 MG TAB PO SCH (09:45)
[2017-06-13] MEDS: Sucralfate 1 GM TAB PO SCH ×4 (09:45→21:19)
[2017-06-13] MEDS: Bupropion 150 MG XL TAB PO SCH (09:45)
[2017-06-13] MEDS: HYDROcodone/Acetaminophen 5/325 mg Tablet PO PRN (09:47)
[2017-06-13] MEDS: BIOTIN 5 MG PO SCH (09:47)
[2017-06-13] MEDS: Triamcinolone 0.1% Cream 15 GM TUBE TOP SCH ×2 (09:50→21:20)
[2017-06-13] MEDS: Nicotine 21 MG PATCH TOP SCH (18:01)
[2017-06-13] MEDS: Amlodipine 10 MG TAB PO SCH (21:19)
[2017-06-13] MEDS: Cyclobenzaprine 10 MG TAB PO PRN (21:19)
[2017-06-13] MEDS: Atorvastatin Calcium 10 MG TAB PO SCH (21:19)
[2017-06-14 05:47] LABS: #Basophils 0.1 thou/uL (0.0-0.2); #Eosinphils 0.4 thou/uL (0.0-0.7); #Monocytes 0.7 thou/uL (0.11-0.59); %Basophils 1.4 % (0.0-1.0); %Eosinophils 7.1 % (0.0-10.0); %Lymphocytes 31.6 % (21.0-51.0); %Neutrophils 48.8 % (42.0-75.0); Hemoglobin 11.9 g/dL (12.0-16.0); Mean Corpuscular HGB CONC 32.4 g/dL (32.0-36.0); Mean Corpuscular Hemoglobin 30.8 pg (27.0-31.0); Mean Platelet Volume 8.1 fL (7.4-10.4); Platelet Count 205 thou/uL (130-400); RBC Distribution Width 13.9 % (11.5-14.5); Red Blood Cell (RBC) Count 3.86 mill/uL (4.20-5.40); White Blood Cell (WBC) Count 6.2 thou/uL (4.8-10.8)
[2017-06-14 05:49] LABS: Anion Gap 15 mmol/L (10-20); BUN (Urea Nitrogen) 28 mg/dL (9.8-20.1); Calc. Creatinine Clearance 62 mL/min (70-130); Calcium 9.5 mg/dL (7.8-10.44); Carbon Dioxide 27 mmol/L (23-31); Chloride 105 mmol/L (98-107); Estimated GFR-MDRD 49; Glucose 85 mg/dL (80-115); Potassium 4.1 mmol/L (3.5-5.1); Sodium 143 mmol/L (136-145)
[2017-06-14] MEDS: Docusate 100 MG CAP PO SCH ×2 (09:05→20:08)
[2017-06-14] MEDS: Calcium Carbonate + Vit D 1 TAB PO SCH (09:06)
[2017-06-14] MEDS: Isosorbide Dinitrate 20 MG TAB PO SCH (09:06)
[2017-06-14] MEDS: Sucralfate 1 GM TAB PO SCH ×4 (09:06→20:08)
[2017-06-14] MEDS: Gabapentin 300 MG CAP PO SCH ×2 (09:06→20:09)
[2017-06-14] MEDS: Hydrochlorothiazide 25 MG TAB PO SCH (09:06)
[2017-06-14] MEDS: Bupropion 150 MG XL TAB PO SCH (09:07)
[2017-06-14] MEDS: Hydroxychloroquine Sulfate 200 MG TAB PO SCH (09:07)
[2017-06-14] MEDS: TROSPIUM 20 MG TABLET PO SCH ×2 (09:07→20:08)
[2017-06-14] MEDS: Valsartan 80 MG TAB PO SCH (09:07)
[2017-06-14] MEDS: OMEGA PO SCH (09:09)
[2017-06-14] MEDS: HYDROcodone/Acetaminophen 5/325 mg Tablet PO PRN ×2 (09:09→22:30)
[2017-06-14] MEDS: [UNRECOGNIZED DRUG - OTHER] PO SCH (09:09)
[2017-06-14] MEDS: BIOTIN 5 MG PO SCH (09:10)
[2017-06-14] MEDS: Triamcinolone 0.1% Cream 15 GM TUBE TOP SCH ×2 (09:10→20:07)
[2017-06-14] MEDS: Nicotine 21 MG PATCH TOP SCH (17:50)
[2017-06-14] MEDS: Atorvastatin Calcium 10 MG TAB PO SCH (20:09)
[2017-06-14] MEDS: Amlodipine 10 MG TAB PO SCH (20:09)
[2017-06-15 04:24] VITALS: BMI 51.3
[2017-06-15] MEDS: [UNRECOGNIZED DRUG - OTHER] PO SCH (09:06)
[2017-06-15] MEDS: OMEGA PO SCH (09:06)
[2017-06-15] MEDS: Isosorbide Dinitrate 20 MG TAB PO SCH (09:07)
[2017-06-15] MEDS: Hydrochlorothiazide 25 MG TAB PO SCH (09:07)
[2017-06-15] MEDS: Hydroxychloroquine Sulfate 200 MG TAB PO SCH (09:07)
[2017-06-15] MEDS: Gabapentin 300 MG CAP PO SCH ×2 (09:07→20:13)
[2017-06-15] MEDS: TROSPIUM 20 MG TABLET PO SCH ×2 (09:07→20:13)
[2017-06-15] MEDS: Bupropion 150 MG XL TAB PO SCH (09:07)
[2017-06-15] MEDS: HYDROcodone/Acetaminophen 5/325 mg Tablet PO PRN ×2 (09:08→17:43)
[2017-06-15] MEDS: Docusate 100 MG CAP PO SCH ×2 (09:08→20:13)
[2017-06-15] MEDS: Calcium Carbonate + Vit D 1 TAB PO SCH (09:08)
[2017-06-15] MEDS: Sucralfate 1 GM TAB PO SCH ×4 (09:08→20:13)
[2017-06-15] MEDS: Triamcinolone 0.1% Cream 15 GM TUBE TOP SCH ×2 (09:09→20:14)
[2017-06-15] MEDS: BIOTIN 5 MG PO SCH (09:09)
[2017-06-15] MEDS: Valsartan 80 MG TAB PO SCH (09:10)
--- NOTE | 2017-06-15 11:16 | PRG ---
DATE OF SERVICE: 06/14/[address] Khoa Whaley SUBJECTIVE: The patient was seen and examined up in a chair watching TV. He feels well, no complain ts of shortness of breath, chest pain, headache, dizziness. She states that she feels her right side is improving in strength. She has a history of a recent intracerebral hemorrhage. OBJECTIVE: VITAL SIGNS: Shows her blood pressure is 119/58, temperature 97, pulse 76, respirations 21, O2 sats 94% on room air. LUNGS: Clear. CARDIAC: Examination displays regular rhythm, no gallops or murmurs. ABDOMEN: Soft and nontender. NEUROLOGICAL: Shows right hemiparesis. LABORATORY DATA: White count 6200, hematocrit 36, hemoglobin 11. Sodium 143, potassium 4.1, chlorid e 105, bicarbonate 27, BUN 28, and creatinine 1.12. ASSESSMENT: 1. Resolving intracerebral hemorrhage with improving right-sided weakness. 2. Hypertension, controlled to goal. 3. Rheumatoid arthritis and discoid lupus, stable. 4. Gastroesophageal reflux, asymptomatic. PLAN: 1. Continue PT, OT. 2. Continue DVT and stress ulcer prophylaxis. 3. Continue nutritional support. Dr. Johnston will not be back until tomorrow night.
--- NOTE | 2017-06-15 12:25 | PRG ---
DATE OF SERVICE: 06/15/2017 SUBJECTIVE: The patient feels well, sitting up in a chair with increasing strength. No problem swal lowing. No coughing, no shortness of breath, palpitations or headache. OBJECTIVE: VITAL SIGNS: Blood pressure is 134/63, temperature is 97, pulse 71, respirations 20, O2 sats 98% on room air. LUNGS: Clear. CARDIAC: Shows regular rhythm. ABDOMEN: Soft and nontender. SKIN/EXTREMITIES: Show no edema, clubbing, cyanosis. NEUROLOGICAL: Shows improving right-sided weakness. ASSESSMENT: 1. Resolving intracranial hemorrhage with improving right hemiparesis. 2. Hypertension, controlled to goal. 3. Stable rheumatoid arthritis. PLAN: 1. Continue PT, OT. 2. Continue DVT and stress ulcer prophylaxis. 3. Continue nutritional support. 4. Dr. Johnston back tonight.
[2017-06-15] MEDS: Nicotine 21 MG PATCH TOP SCH (17:45)
[2017-06-15] MEDS: Amlodipine 10 MG TAB PO SCH (20:13)
[2017-06-15] MEDS: Atorvastatin Calcium 10 MG TAB PO SCH (20:13)
[2017-06-16] MEDS: Bupropion 150 MG XL TAB PO SCH (09:37)
[2017-06-16] MEDS: Calcium Carbonate + Vit D 1 TAB PO SCH (09:37)
[2017-06-16] MEDS: Docusate 100 MG CAP PO SCH ×2 (09:38→21:03)
[2017-06-16] MEDS: Gabapentin 300 MG CAP PO SCH ×2 (09:38→21:03)
[2017-06-16] MEDS: Hydroxychloroquine Sulfate 200 MG TAB PO SCH (09:38)
[2017-06-16] MEDS: Hydrochlorothiazide 25 MG TAB PO SCH (09:38)
[2017-06-16] MEDS: Isosorbide Dinitrate 20 MG TAB PO SCH (09:39)
[2017-06-16] MEDS: BIOTIN 5 MG PO SCH (09:40)
[2017-06-16] MEDS: [UNRECOGNIZED DRUG - OTHER] PO SCH (09:40)
[2017-06-16] MEDS: OMEGA PO SCH (09:40)
[2017-06-16] MEDS: Sucralfate 1 GM TAB PO SCH ×4 (09:41→21:03)
[2017-06-16] MEDS: TROSPIUM 20 MG TABLET PO SCH ×2 (09:41→21:03)
[2017-06-16] MEDS: Triamcinolone 0.1% Cream 15 GM TUBE TOP SCH ×2 (09:41→21:22)
[2017-06-16] MEDS: HYDROcodone/Acetaminophen 5/325 mg Tablet PO PRN (09:42)
[2017-06-16] MEDS: Valsartan 80 MG TAB PO SCH (09:42)
[2017-06-16] MEDS: Acetaminophen 325 MG TAB PO PRN ×3 (12:31→22:31)
--- NOTE | 2017-06-16 13:26 | PRG ---
DATE OF SERVICE: 06/16/2017 SUBJECTIVE: Ms. Nation is doing well. Denies any complaints, resting comfortably, tolerating her med ications. OBJECTIVE: VITAL SIGNS: She is afebrile, heart rate is 76, respirations 22, oxygen saturation 95% on room air, blood pressure 142/83. CARDIOVASCULAR SYSTEM: S1, S2 plus. RESPIRATORY SYSTEM: Normal vascular breath sounds. ABDOMEN: Soft, nontender, bowel sounds heard in all quadrants. EXTREMITIES: Without cyanosis or clubbing. Peripheral pulses are palpable. CENTRAL NERVOUS SYSTEM: Improving deconditioning. IMPRESSION: 1. Intracranial hemorrhage with improving right-sided weakness. 2. Hypertension, well controlled. 3. Discoid lupus. 4. Rheumatoid arthritis. 5. Gastroesophageal reflux disease. 6. Dyslipidemia. 7. Improving deconditioning. PLAN: 1. Continue physical therapy. 2. Heart healthy diet. 3. DVT and stress ulcer prophylaxis. 4. Decubitus precautions. 5. Physical therapy. 6. Discharge planning. 7. Routine laboratory values. 8. Discussed with patient in detail. All questions answered.
[2017-06-16] MEDS: Nicotine 21 MG PATCH TOP SCH (18:00)
[2017-06-16] MEDS: Amlodipine 10 MG TAB PO SCH (21:03)
[2017-06-16] MEDS: Atorvastatin Calcium 10 MG TAB PO SCH (21:03)
[2017-06-16] MEDS: Cyclobenzaprine 10 MG TAB PO PRN (21:04)
[2017-06-17] MEDS: Bupropion 150 MG XL TAB PO SCH (08:45)
[2017-06-17] MEDS: Gabapentin 300 MG CAP PO SCH ×2 (08:46→20:08)
[2017-06-17] MEDS: Docusate 100 MG CAP PO SCH ×2 (08:46→20:08)
[2017-06-17] MEDS: Hydroxychloroquine Sulfate 200 MG TAB PO SCH (08:46)
[2017-06-17] MEDS: Calcium Carbonate + Vit D 1 TAB PO SCH (08:46)
[2017-06-17] MEDS: Hydrochlorothiazide 25 MG TAB PO SCH (08:47)
[2017-06-17] MEDS: [UNRECOGNIZED DRUG - OTHER] PO SCH (08:47)
[2017-06-17] MEDS: OMEGA PO SCH (08:47)
[2017-06-17] MEDS: BIOTIN 5 MG PO SCH (08:47)
[2017-06-17] MEDS: Isosorbide Dinitrate 20 MG TAB PO SCH (08:47)
[2017-06-17] MEDS: Sucralfate 1 GM TAB PO SCH ×4 (08:48→20:08)
[2017-06-17] MEDS: Triamcinolone 0.1% Cream 15 GM TUBE TOP SCH ×2 (08:48→20:09)
[2017-06-17] MEDS: TROSPIUM 20 MG TABLET PO SCH ×2 (08:49→20:08)
[2017-06-17] MEDS: HYDROcodone/Acetaminophen 5/325 mg Tablet PO PRN ×2 (08:49→15:38)
[2017-06-17] MEDS: Valsartan 80 MG TAB PO SCH (08:49)
--- NOTE | 2017-06-17 14:09 | PRG ---
DATE OF SERVICE: 06/17/2017 SUBJECTIVE: Ms. Nation is doing well, denies any complaints, resting comfortably. She states that luis has arranged for someone to be with her 30/09. Her boyfriend and one of her friends is going to [facility] turns. Anticipate discharge date is tomorrow. OBJECTIVE: VITAL SIGNS: She is afebrile, heart rate 74, respirations 22, oxygen saturation 97% on room air, blo od pressure 130/66. CARDIOVASCULAR: S1, S2 plus. RESPIRATORY: Normal vesicular breath sounds. ABDOMEN: Soft, nontender, bowel sounds heard in all quadrants. EXTREMITIES: Without cyanosis or clubbing. CENTRAL NERVOUS SYSTEM: Improving right-sided weakness. IMPRESSION: 1. Intracerebral hemorrhage with improving right-sided weakness. 2. Hypertension, well controlled. 3. Dyslipidemia. 4. Discoid lupus. 5. Rheumatoid arthritis. 6. Improving deconditioning. PLAN: 1. Continue current medications. 2. Nutritional support. 3. Heart healthy diet. 4. DVT and stress ulcer prophylaxis. 5. Decubitus precautions. 6. Discharge planning.
[2017-06-17] MEDS: Nicotine 21 MG PATCH TOP SCH (17:44)
[2017-06-17] MEDS: Atorvastatin Calcium 10 MG TAB PO SCH (20:08)
[2017-06-17] MEDS: Amlodipine 10 MG TAB PO SCH (20:08)
[2017-06-18 08:40] VITALS: BP 119/72; TEMP 98.6
[2017-06-18] MEDS: HYDROcodone/Acetaminophen 5/325 mg Tablet PO PRN ×2 (09:22→14:01)
[2017-06-18] MEDS: Valsartan 80 MG TAB PO SCH (09:23)
[2017-06-18] MEDS: Gabapentin 300 MG CAP PO SCH (09:23)
[2017-06-18] MEDS: Isosorbide Dinitrate 20 MG TAB PO SCH (09:23)
[2017-06-18] MEDS: Sucralfate 1 GM TAB PO SCH ×2 (09:23→13:02)
[2017-06-18] MEDS: Hydrochlorothiazide 25 MG TAB PO SCH (09:23)
[2017-06-18] MEDS: Docusate 100 MG CAP PO SCH (09:23)
[2017-06-18] MEDS: Hydroxychloroquine Sulfate 200 MG TAB PO SCH (09:23)
[2017-06-18] MEDS: Bupropion 150 MG XL TAB PO SCH (09:23)
[2017-06-18] MEDS: OMEGA PO SCH (09:24)
[2017-06-18] MEDS: TROSPIUM 20 MG TABLET PO SCH (09:24)
[2017-06-18] MEDS: Calcium Carbonate + Vit D 1 TAB PO SCH (09:24)
[2017-06-18] MEDS: [UNRECOGNIZED DRUG - OTHER] PO SCH (09:24)
[2017-06-18] MEDS: BIOTIN 5 MG PO SCH (09:29)
[2017-06-18] MEDS: Triamcinolone 0.1% Cream 15 GM TUBE TOP SCH (14:02)
--- NOTE | 2017-06-18 20:07 | DIS ---
DATE OF ADMISSION: 05/20/2017 DATE OF DISCHARGE: 06/18/2017 PRINCIPAL DIAGNOSIS: Intracranial hemorrhage with right-sided weakness much improved. SECONDARY DIAGNOSES: 1. Hypertension, well controlled. 2. Dyslipidemia. 3. Rheumatoid arthritis. 4. History of peptic ulcer disease. 5. Depression, stable. 6. Overactive bladder. 7. History of ischemic cerebrovascular accident in 2004. 8. Discoid lupus. 9. Chronic back pain. 10. Multiple dental surgeries. 11. History of hysterectomy. 12. History of bladder surgery. 13. History of osteoarthritis and left total knee replacement. 14. History of back surgery in 2004. COMPLICATIONS: None. ADVERSE REACTIONS: None. PROCEDURES: None. CONSULTATIONS: Physical therapy, occupational therapy, and speech therapy. HOSPITAL COURSE: The patient was admitted as a transfer from [facility] with int racranial hemorrhage resulting in right-sided weakness. Her Aggrenox is on hold. She was deemed a c andidate for inpatient therapy and transferred here. She has done well and slowly improved to the po int that now she is able to ambulate with just the help of a cane. She states that her boyfriend and another friend is going to be there taking turns to be with her at all times. Discussed with Therap y and final clearance has not been given by Therapy yet, but when I discussed with them last week, luz maria montgomery said that she should be able to go home this week. I have asked nursing to check with Therapy as their phone is placed on voicemail and if Therapy is okay with her going home, then she can go home t [facility]ia. PHYSICAL EXAMINATION: VITAL SIGNS: On the day of discharge, she is afebrile, heart rate is 78, respirations 18, oxygen sat uration 96% on room air, blood pressure 119/72. CARDIOVASCULAR SYSTEM: S1, S2 plus. RESPIRATORY SYSTEM: Normal vesicular breath sounds heard in lung tate. ABDOMEN: Soft, nontender, bowel sounds heard in all quadrants. EXTREMITIES: Without cyanosis or clubbing. CENTRAL NERVOUS SYSTEM: Much improved right-sided weakness. LABORATORY VALUES: Last ones were done on 06/14/2017, white count is 6.2, H and H is 11.9 and 36.7, sodium 143, potassium 4.1, BUN and creatinine 28 and 1.12. DISCHARGE MEDICATIONS: 1. Hydrocodone 5/325, 1-2 tabs q.6 hours p.r.n. pain. 2. Norvasc 10 mg p.o. at night. 3. Lipitor 10 mg at night. 4. Wellbutrin XL 300 mg in the morning. 5. Flexeril 10 mg p.o. at bedtime p.r.n. 6. Calcium with vitamin D 1 tablet daily. 7. Colace 100 mg b.i.d. 8. Gabapentin 300 mg b.i.d. 9. Hydroxychloroquine 200 mg daily. 10. Isosorbide 40 mg daily. 11. Myrbetriq 50 mg daily. 12. Nicotine patch, it has been reduced to 14 mg daily for 1 week, then 7 mg daily for 1 week, then off. 13. Pantoprazole 40 mg daily. 14. Biotin 5 mg daily. 15. Zoloft 100 mg daily. 16. Carafate 1 gram q.i.d. 17. Trospium 20 mg b.i.d. 18. Actually, she is not on amlodipine. She is on the combination medicine, Exforge HCT, which is a mlodipine 10 mg, valsartan 80 mg, and HCTZ 25 mg and she is to resume that. DIET: She is to follow a heart healthy diet. ACTIVITY: As tolerated. FOLLOWUP: She is to follow up with her PCP, Dr. Valencia in 5-7 days. She wants [facility] and that has been arranged by case management. All home health orders will be managed by Dr. Valencia. The patient states that she does not need any prescriptions. She has all her medicines at home. No fam jose at bedside currently. I have advised the patient to call us with any questions or concerns. Total time spent on this discharge 35 minutes.
== END 2017-06-18 15:30 | disposition home health service (06) | DRG 57 ==
LOC: UNDOADMIN 16:47 → NAV ACUTE 16:47 → UNDODISIN 06-18 15:30
PROVIDERS: ADMIT Internal Medicine; ATTEND Internal Medicine
DX: I69.251 Hemiplegia and hemiparesis following other nontraumatic intracranial hemorrhage affecting right dominant side (principal); E78.5 Hyperlipidemia, unspecified; L93.0 Discoid lupus erythematosus; I10 Essential (primary) hypertension; M06.9 Rheumatoid arthritis, unspecified; F32.9 Major depressive disorder, single episode, unspecified; N32.81 Overactive bladder; G89.29 Other chronic pain; K21.9 Gastro-esophageal reflux disease without esophagitis; F17.200 Nicotine dependence, unspecified, uncomplicated; Z87.11 Personal history of peptic ulcer disease; Z79.899 Other long term (current) drug therapy; Z96.652 Presence of left artificial knee joint
CPT/HCPCS: 36415; 80048; 83036; 85025; G8978-GP-CM; G8979-GP-CJ; G9168-GN-CJ; G9169-GN-CI